=== PATIENT | male | born 1935 | race Caucasian/White ===

== ENCOUNTER 2018-12-18 08:12 | Observation (INO) ==
[2018-12-18] MEDS ORDERED: MIDAZOLAM HCL 1 MG/ML 2ML VIAL ONE (10:07)
[2018-12-18] MEDS ORDERED: fentaNYL citrate 100 MCG/2 ML VIAL ONE (10:07)
[2018-12-18] MEDS ORDERED: HEPARIN (PORCINE) 1000 UNIT/ML 10 ML (CATH LAB USE ONLY) ONE (10:08)
[2018-12-18] MEDS ORDERED: NiCARDipine HCL INJ 2.5 MG/ML 10 ML AMP ONE (10:08)
[2018-12-18] MEDS ORDERED: NITROGLYCERIN/D5W 100MCG/ML 20ML SYR ONE (10:10)
--- NOTE | 2018-12-18 10:12 | History & Physical Bridge Note ---
Date of Service December 18, 2018 History & Physical Bridge Note I have examined the patient, reviewed the History & Physical and in the interval since the performance of the History & Physical I have noted the following changes of clinical significance: no changes noted
--- NOTE | 2018-12-18 10:12 | Pre Anesthesia Assessment ---
Date of Service December 18, 2018 Pre Sedation Assessment Vital Signs Temp Pulse Resp Pulse Ox 12/18/18 08:38 36.6 C 74 16 98 Pre-Sedation Airway Assessment Smoking Status: Never smoker Hx Sleep Apnea: No Hx Difficult Intubation: No Short, Thick Neck: No Thyromental Distance: > or= 3.5 Finger Breadths Oral Cavity: + WNL Mallampati Class: III ASA: ASA3 NPO Status Date of Last Intake of Fluids: 12/17/18 Time of Last Intake of Fluids: 19:00 Date of Last Intake of Solid Food: 12/17/18 Time of Last Intake of Solid Foods: 19:00 Notes The planned sedation has been discussed with the patient. Informed Consent was obtained. I have identified the patient, determined the appropriateness of sedation and have assessed the patient immediately prior to the procedure. All medicine(s) and interventions are by my order.
[2018-12-18] MEDS ORDERED: ACETAMINOPHEN 325 MG TAB PO PRN (11:32)
[2018-12-18] MEDS ORDERED: ONDANSETRON INJ 2 MG/ML 2 ML VIAL IV PRN (11:32)
--- NOTE | 2018-12-18 11:32 | Post Anesthesia Assessment ---
Date of Service December 18, 2018 Post Sedation Assessment Vital Signs Temp Pulse Resp Pulse Ox 12/18/18 08:38 36.6 C 74 16 98 Recovery Score Activity: Moves 4 extremities Respiration: Deep Breath/Cough Circulation: +/-20% PreAnes Value Consciousness: Fully Awake Oxygen Saturation: O2 needed for >90% Discharge Sedation Level of Care: Fast Track Phase II Post Sedation Plan On clinical assessment, the patient appears to have tolerated the sedation without complications. Patient is recovering as anticipated. Patient will continue to be monitored by nursing and may be discharged when sedation discharge criteria are met per below protocol. Upon Completions of procedure and additional 15 minutes continue every 5 minute vital signs and the P.A.R. score; then discharge to a Phase I or Fast Track to Phase II per the following guidelines: * Discharge Patient to appropriate Phase II area if PAR is 8 or greater or return to pre- procedure baseline. The post - procedure orders will be as directed. * If PAR score is less than 8 or not return to pre-procedure baseline then patient will follow Phase I monitoring till PAR is reached for Phase II. The Phase I may be done in procedure room or may call to secure a Phase I area. * If naloxone or flumazenil are used for reversal, hold in Phase I for continued monitoring from when last reversal dose was given for a minimum of 60 minutes or longer pending the nurse and/or physician discretion of patient condition before discharge to Phase II. Please call the Sedation Physician to re-evaluate and complete post-note for discharge to Phase II area. Do NOT discharge from procedure sedation or Phase 1 until post- sedation evaluation note is complete by procedure /sedation MD Sedation Discharge Instructions to be given to the patient at discharge to home.
[2018-12-18] MEDS ORDERED: OXYCODONE HCL IR 5 MG TAB (IMMEDIATE RELEASE) PO PRN (11:34)
--- NOTE | 2018-12-18 11:59 | Cardiac Catheterization ---
Cardiac Cath Procedure Full Procedure Date December 18, 2018 Pre-Procedure Diagnosis Pre-Procedure Diagnosis: CAD AUC Score AUC Score: 7 Post-Procedure Diagnosis Post-Procedure Diagnosis: Severe CAD and Successful PCI Procedure(s) Performed Procedure(s) Performed: PTCA and Femoral Artery Angiography Hub Inventory Specialist Quincy Coburn MD Solar Electric Practitioner(s) Manjit Estimated Blood Loss Estimated Blood Loss: 10 Medication(s) Medication(s): Fentanyl, Heparin, Lidocaine 1% and Versed Summary of Findings Indication: Staged PCI of mid RCA Access: 6 Fr right common femoral artery Catheters: AL1 Findings: For full details of patient's coronary angiography please cath report dictated by 12/02/2018. Briefly, patient found to have multi vessel disease including a subtotally occluded LAD and 90% sequential stenosis involving the mid RCA. Post PCI to LAD at time of STEMI/cardiac arrest. Decision to proceed with staged PCI of RCA today. -- PCI -- Antithrombotic therapy: Heparin, ticagrelor Procedure: RCA cannulated with AL-1 guide and guideliner Gas Inspector 50 wire passed across lesion into distal vessel Earlymid and latemid lesions predilated with 1.5, 2.0, 2.5 compliant balloons Earlymid lesion resistant to high pressure compliant balloon inflations Attempt made to dilate early-mid lesion with angiosculpt 2.5 balloon but stenosis persisted Further attempt made to dilate with 2.5 NC balloon but again unable to expand lesion. At this point latemid RCA lesion well-expanded with minimal residual stenosis. 70% residual stenosis in earlymid stenosis but no evidence of dissection or other coronary complications. Due to inability to fully expand earlymid RCA lesion decision made to forego stenting. Post procedure ALBERT III flow and chest pain-free. Arterial Closure: Angio-Seal Summary: 1. Sequential severe mid RCA lesions 2. PCI of late-mid RCA lesion with 2.5 balloon with minimal residual stenosis. 3. PCI of early-mid RCA lesion with 2.5 compliant/NC balloons, and 2.5 angiosculpt balloon with residual 70% stenosis. Recommendations: To PCU for continued monitoring Continue Ticagrelor Continue dual-antiplatelet therapy for at least 1 year Continue statin, and ASCVD risk factor modification Cardiac rehab. No plans for further intervention to RCA unless refractory angina. If RCA lesion were to require intervention in the future would recommend referral to tertiary center for atherectomy. Hemodynamics Rest Ao:: 108/50/72 Final Ao: 104/55/77 LV: -- Recommendations Recommendations: PCI without planned CABG Specimens Specimens: None Radiation Exposure (mGy) 2079 Contrast (mls) 90 Fluids (cc crystalloids) Fluids (cc crystalloids): 200 Drains Drains: none Anesthesia moderate Procedural Complication(s) None Disposition PCU ACC Data: Retail Special Event Associate Cardiac Status Clinical evaluation leading to the procedure CAD Presenation: Stable angina Anginal Classification: CCS III Heart Failure: No Cardiogenic Shock within 24 Hours: No Cardiac Arrest within 24 Hours: No Imaging Studies Past 6 Months: Yes Stress Studies Past 6 Months: No Diagnostic Physicians Name: Quincy Coburn MD Status: Elective Closure Device Percutaneous Entry Location: Radial Closure Device: Angio-Seal Recommendations: PCI without planned CABG PCI Indication: Staged PCI Lesion Segment Name: mid RCA Culprit Artery: No Stenosis Prior to Rx (%): 90 Chronic Total Occlusion: No IVUS: No FFR: No Pre-Procedure ALBERT Flow: 3 Previously Treated Lesion: No Lesion Complexity: High/C Lesion Length (mm): 25 Thrombus Present: No Bifurcation Lesion: No Guidewire Across Lesion: Stenosis Post-Procedure (%): 70 Post-Procedure ALBERT Flow: 3 Devices(s) Deployed: No Yes Intraprocedure Events Significant Disection: No Perforation: No
[2018-12-18] MEDS: SODIUM CHLORIDE 0.9% 1000ML 1,000 ML IV SCH (12:18)
[2018-12-18] MEDS: FLUTICASONE/SALMETEROL 250/50 (ADVAIR) 14 PUFF/1 INHALER INH SCH (20:35)
[2018-12-18] MEDS: TICAGRELOR 90 MG TAB PO SCH (20:35)
[2018-12-18] MEDS ORDERED: ATORVASTATIN 40 MG TAB PO SCH (21:00)
[2018-12-19] MEDS: SODIUM CHLORIDE 0.9% 1000ML 1,000 ML IV SCH (00:02)
[2018-12-19 07:20] LABS: Basophils # (auto) 0.01 K/uL (0-0.2); Basophils % (auto) 0.1 %; Eosinophils # (auto) 0.09 K/uL (0-0.5); Eosinophils % (auto) 1.2 %; Hematocrit (blood only) 37.3 % (42-52); Immature Granulocytes # (auto) 0.02 K/uL (0.00-0.02); Immature Granulocytes % (auto) 0.3 %; Lymphocytes # (auto) 0.64 K/uL (1.2-3.4); Lymphocytes % (auto) 8.6 %; Mean Corpuscular Hgb Conc 34.9 g/dL (32-36); Mean Corpuscular Volume 90.3 fL (80-100); Mean Platelet Volume 10.2 fL (7.4-10.4); Monocytes # (auto) 0.54 K/uL (0.11-0.59); Monocytes % (auto) 7.3 %; Neutrophils % (auto) 82.5 %; Platelet Count 271 K/uL (130-400); RDW Standard Deviation 46.2 fL (36.4-46.3); Red Blood Count 4.13 M/uL (4.7-6.1)
[2018-12-19] MEDS: FLUTICASONE/SALMETEROL 250/50 (ADVAIR) 14 PUFF/1 INHALER INH SCH (07:38)
[2018-12-19] MEDS: TICAGRELOR 90 MG TAB PO SCH (07:39)
[2018-12-19 07:57] LABS: Calcium 8.4 mg/dl (8.5-10.1); Creatinine Clr Calc Pharmacy 58.2 ml/min; Est GFR (African American) 79.9; Est GFR (Non-African American) 68.9; Potassium 4.2 mmol/L (3.5-5.1)
[2018-12-19] MEDS ORDERED: ASPIRIN 81 MG ECTAB PO SCH (09:00)
[2018-12-19] MEDS ORDERED: LISINOPRIL 10 MG TAB PO SCH (09:00)
[2018-12-19] MEDS ORDERED: METOPROLOL SUCC 50MG EXT REL TAB PO SCH (09:00)
--- NOTE | 2018-12-21 16:54 | Discharge Summary ---
Date of Service December 21, 2018 Admission HPI Per Admitting Provider Mr. Varner is an 83 year old male with recent acute anterior STEMI, VT/VF arrest, ischemic cardiomyopathy, multivessel CAD, dyslipidemia, hypertension, asthma and history of renal cancer. He returns today for planned PCI of RCA. Specialty Data Cardiology PCI of RCA: Summary: 1. Sequential severe mid RCA lesions 2. PCI of late-mid RCA lesion with 2.5 balloon with minimal residual stenosis. 3. PCI of early-mid RCA lesion with 2.5 compliant/NC balloons, and 2.5 angiosculpt balloon with residual 70% stenosis. Discharge Data Procedures Performed Operation Date: 12/18/18 09:30 Actual Procedures p POBA SGL Vessel - Amilcar Coburn MD s Cineradiography w/Routine Exam - Amilcar Coburn MD s Cath, Coronaries ONLY (no LV) - Amilcar Coburn MD Hospital Course (1) CAD (coronary artery disease): Patient return for staged PCI of RCA. Was previously admitted in November 2018 in the setting of anterior STEMI complicated by VT/VF cardiac arrest and severe LV dysfunction. Had previously underwent PCI of mid LAD with single drug-eluting stent at time of STEMI. During admission attempt made at PCI of mid RCA but was unable to pass equipment across mid RCA stenosis. Returned to approach via femoral artery. With current procedure was able to pass multiple balloons across mid RCA stenosis. Latemid RCA stenosis responded appropriately to compliant balloon inflation with minimal residual stenosis. Earlymid RCA stenosis resistant to multiple compliant balloon inflations as well as 2.5 angiosculpt balloon. Post inflations approximately 60-70% residual stenosis. No apparent dissection or coronary complications and ALBERT-3 flow. Decision made to complete procedure without stenting. Patient was admitted for observation. Had no chest pain during observation. Telemetry unremarkable. No access site complications on day of discharge. Follow-up labs were stable. Patient discharged home on prior dual antiplatelet therapy with aspirin, Brilinta. No plans for repeat attempts at intervention to RCA unless refractory angina in the future. Follow-up with cardiology in 2 weeks. Discharge Instructions Home Medications fluticasone-salmeterol 1 puff INHALATION BID 12/02/18 [History Confirmed 12/18/18] Brilinta 90 mg PO BID #60 tab 12/06/18 [Rx Confirmed 12/18/18] aspirin [Ecotrin Low Strength] 81 mg PO QAM #30 tab 12/06/18 [Rx Confirmed 12/18/18] oxycodone 5 mg PO Q8H PRN #30 tab 12/06/18 [Rx Confirmed 12/18/18] atorvastatin 80 mg PO HS 12/18/18 [History Confirmed 12/18/18] lisinopril 10 mg PO DAILY 12/18/18 [History Confirmed 12/18/18] metoprolol succinate 100 mg PO DAILY 12/18/18 [History Confirmed 12/18/18] spironolactone 25 mg PO DAILY #30 tab 12/19/18 [Rx]
== END 2018-12-19 10:56 | disposition home or self-care (01) ==
LOC: 2S 08:12 → CC 08:12

== ENCOUNTER 2020-08-06 06:01 | Observation (INO) ==
[2020-08-06 06:38] LABS: Basophils # (auto) 0.01 K/uL (0-0.2); Basophils % (auto) 0.1 %; Eosinophils # (auto) 0.42 K/uL (0-0.5); Eosinophils % (auto) 5.6 %; Hematocrit (blood only) 43.1 % (42-52); Hemoglobin 14.8 g/dL (14.0-18.0); Immature Granulocytes # (auto) 0.02 K/uL (0.00-0.02); Immature Granulocytes % (auto) 0.3 %; Lymphocytes % (auto) 13.4 %; Mean Corpuscular Hemoglobin 32.2 pg (25-34); Mean Corpuscular Hgb Conc 34.3 g/dL (32-36); Mean Corpuscular Volume 93.7 fL (80-100); Mean Platelet Volume 10.7 fL (7.4-10.4); Monocytes # (auto) 0.65 K/uL (0.11-0.59); Monocytes % (auto) 8.7 %; Neutrophils # (auto) 5.35 K/uL (1.4-6.5); Neutrophils % (auto) 71.9 %; Platelet Count 177 K/uL (130-400); RDW Coefficient of Variation 14.2 % (11.5-14.5); RDW Standard Deviation 48.6 fL (36.4-46.3); White Blood Count 7.45 K/uL (4.8-10.8)
--- NOTE | 2020-08-06 06:41 | XRay Report ---
XR chest 1V portable CLINICAL HISTORY: Atypical chest pain. COMPARISON STUDY: Chest radiograph January 01, 2019. FINDINGS: Lung volumes are mildly increased. Lungs are clear. There is no pneumothorax or pleural eff usion. Cardiac size is normal. Mediastinal contours are normal. There is no evidence for pulmonary ed jostin. Incidental note is made of severe osteoarthritis of the right glenohumeral joint. IMPRESSION: No acute cardiopulmonary findings. ACT 112: Negative or not required by law. Electronically signed by: Birtton Harris M.D. 08/06/2020 6:40 AM
[2020-08-06 06:42] LABS: Partial Thromboplastin Time 27.6 Seconds (21.0-31.0); Prothrombin Time 10.6 Seconds (9.0-12.0)
[2020-08-06 06:51] LABS: Alanine Aminotransferase 32 U/L (12-78); Albumin Level 3.3 gm/dl (3.4-5.0); Aspartate Aminotransferase 25 U/L (15-37); BUN Creatinine Ratio 24.4 (10-20); Blood Urea Nitrogen 26 mg/dl (7-18); Calcium 8.6 mg/dl (8.5-10.1); Carbon Dioxide 26 mmol/L (21-32); Chloride 112 mmol/L (98-107); Creatinine Clr Calc Pharmacy 48.5 ml/min; Est GFR (African American) 72.7; Est GFR (Non-African American) 62.7; Glucose 99 mg/dl (70-99); Lipase 67 U/L (73-393); Potassium 4.3 mmol/L (3.5-5.1); Sodium 141 mmol/L (136-145)
[2020-08-06 06:56] LABS: Albumin Globulin Ratio 1.1 (0.9-2); Alkaline Phosphatase 105 U/L (45-117); Bilirubin,Total 0.7 mg/dl (0.2-1); Globulin 2.9 gm/dl (2.5-4.0); Total Protein 6.2 gm/dl (6.4-8.2); Troponin I < 0.015 ng/ml (0-0.045)
--- NOTE | 2020-08-06 07:32 | Emergency Department Note ---
History of Present Illness General Chief Complaint: Chest Pain Stated Complaint: CHEST PAIN Time Seen by Provider: 08/06/20 06:42 Source: patient Mode of arrival: ambulatory Limitations: no limitations History of Present Illness Provider Complaint: chest pain Maximum Pain Intensity: 0 This is an 85-year-old male who presents to the ED with a chief complaint of states that his symptoms chest pain. The patient are tingling under the left chest that come and go. The patient states that this morning it lasted longer while he was lying in bed and therefore he came to the ED for evaluation. He does have history of 1 stent in the past. The symptoms are not similar to the symptoms that he had when he needed a stent a year ago. He denies any associated symptoms such as shortness of breath, fevers or recent illness. He is currently not having the symptoms. Home Medications Home Medications Medication Instructions Recorded Confirmed Type fluticasone propion-salmeterol 1 puff INHALATION BID 12/02/18 08/06/20 History ticagrelor 90 mg tablet 90 mg PO BID #180 tab 11/29/19 08/06/20 Rx atorvastatin 80 mg tablet 80 mg PO HS #90 tab 01/28/20 08/06/20 Rx aspirin [Ecotrin Low Strength] 81 mg PO HS 08/06/20 08/06/20 History lisinopril 10 mg PO QAM 08/06/20 08/06/20 History metoprolol succinate 100 mg PO QAM 08/06/20 08/06/20 History nitroglycerin 0.4 mg SUBLINGUAL UD PRN 08/06/20 08/06/20 History Allergies Allergy/AdvReac Type Severity Reaction Status Date / Time amoxicillin Allergy Unknown Verified 08/06/20 06:20 ciprofloxacin Allergy Unknown Verified 08/06/20 06:20 Past Med/Surg History Family History Other No pertinent family history Social History Smoking Status: Never smoker Second Hand Exposure: No; Hx Alcohol Use: No Hx Substance Use: No Preferred Language: Estonian Communication Ability: Effective Senior Underwriter Required: No Beliefs That Will Affect Care: None marital status: Current Living Situation: Spouse current occupational status: retired Feels Safe at Home: Yes Assistive Devices: None Review of Systems A total of 10 systems reviewed and were otherwise negative Physical Exam Vital Signs Vital Signs - 24 hr 08/06/20 06:16 08/06/20 06:21 08/06/20 06:31 Temperature 36.8 C Temperature Source Oral Pulse Rate 64 62 Pulse Rate from SpO2 Sensor 68 Respiratory Rate 18 13 Respiratory Effort / Characteristics Non-Labored Respiratory Depth Normal Blood Pressure 179/108 H 154/88 H Blood Pressure Mean 131 97 Pulse Oximetry 97 97 Oxygen Delivery Method Room Air Room Air Room Air Sepsis Recent Fever Within 48 Hours No Sepsis New/Unexplained Change in Mental Status No Sepsis Action Taken by Nursing No Action Required CONSTITUTIONAL/VITAL SIGNS: Reviewed / noted above. GENERAL: Non-toxic in appearance. INTEGUMENTARY: Warm, dry, and [place]. HEAD: Normocephalic. EYES: without scleral icterus or trauma. ENT/OROPHARYNX: clear and moist. LYMPHADENOPATHY/NECK: Is supple without lymphadenopathy or meningismus. RESPIRATORY: Lungs clear and equal. CARDIOVASCULAR: Regular rate and rhythm. GI/ABDOMEN: Soft and nontender. No organomegaly or pulsatile mass. No rebound or guarding. Normal bowel sounds. EXTREMITIES: Warm and well perfused. BACK: No CVA tenderness. NEUROLOGICAL: Intact without focal deficits. PSYCHIATRIC: normal affect. MUSCULOSKELETAL: Normally developed with good muscle tone. TRIAGE NURSING DOCUMENTATION REVIEWED. Medical Decision Making Differential Diagnosis The differential that was considered includes acute myocardial infarction, acute coronary syndrome, myocarditis, pericarditis, pericardial effusions /tamponade, esophageal perforation, thoracic aortic dissection, pulmonary embolism, pneumonia, pneumothorax, pancreatitis, shingles, acute cholecystitis, perforated abdominal viscus. Medical Records Attestation: I reviewed the patient's medical records. Home Medications Current Medication List: was personally reviewed by pr Laboratory Data Attestation: I reviewed the patient's lab results. Result diagrams: 08/06/20 06:13 08/06/20 06:13 Labs: Lab Results 08/06/20 08/06/20 08/06/20 Range/Units 06:13 06:13 06:13 WBC 7.45 (4.8-10.8) K/uL RBC 4.60 L (4.7-6.1) M/uL Hgb 14.8 (14.0-18.0) g/dL Hct 43.1 (42-52) % MCV 93.7 (80-100) fL MCH 32.2 (25-34) pg MCHC 34.3 (32-36) g/dL RDW Std Deviation 48.6 H (36.4-46.3) fL RDW Coeff of [place] 14.2 (11.5-14.5) % Plt Count 177 (130-400) K/uL MPV 10.7 H (7.4-10.4) fL Immature Gran % (Auto) 0.3 % Neut % (Auto) 71.9 % Lymph % (Auto) 13.4 % [place] % (Auto) 8.7 % Eos % (Auto) 5.6 % Baso % (Auto) 0.1 % Neut # (Auto) 5.35 (1.4-6.5) K/uL Lymph # (Auto) 1.00 L (1.2-3.4) K/uL [place] # (Auto) 0.65 H (0.11-0.59) K/uL Eos # (Auto) 0.42 (0-0.5) K/uL Baso # (Auto) 0.01 (0-0.2) K/uL Immature Gran # (Auto) 0.02 (0.00-0.02) K/uL PT 10.6 (9.0-12.0) Seconds INR 1.0 (0.9-1.1) APTT 27.6 (21.0-31.0) Seconds PTT Ratio 1.0 Sodium 141 (136-145) mmol/L Potassium 4.3 (3.5-5.1) mmol/L Chloride 112 H (98-107) mmol/L Carbon Dioxide 26 (21-32) mmol/L Anion Gap 3.0 (3-11) BUN 26 H (7-18) mg/dl Creatinine 1.08 (0.6-1.4) mg/dl Est Cr Clr Drug Dosing 48.5 ml/min Est GFR ( Amer) 72.7 Est GFR (Non-Af Amer) 62.7 BUN/Creatinine Ratio 24.4 H (10-20) Glucose 99 (70-99) mg/dl Calcium 8.6 (8.5-10.1) mg/dl Total Bilirubin 0.7 (0.2-1) mg/dl AST 25 (15-37) U/L ALT 32 (12-78) U/L Alkaline Phosphatase 105 (45-117) U/L Troponin I < 0.015 (0-0.045) ng/ml Total Protein 6.2 L (6.4-8.2) gm/dl Albumin 3.3 L (3.4-5.0) gm/dl Globulin 2.9 (2.5-4.0) gm/dl Albumin/Globulin Ratio 1.1 (0.9-2) Lipase 67 L (73-393) U/L Imaging Data Chest x-ray: Attestation: I personally reviewed and interpreted this imaging study as follows: Radiologist's impression: XR chest 1V portable CLINICAL HISTORY: Atypical chest pain. COMPARISON STUDY: Chest radiograph January 01, 2019. FINDINGS: Lung volumes are mildly increased. Lungs are clear. There is no pneumothorax or pleural effusion. Cardiac size is normal. Mediastinal contours are normal. There is no evidence for pulmonary edema. Incidental note is made of severe osteoarthritis of the right glenohumeral joint. IMPRESSION: No acute cardiopulmonary findings. ECG Data Attestation: I personally reviewed and interpreted this ECG as follows: Indication: chest pain Rate (beats per minute): 72 Rhythm: sinus with SA Findings: no PVC and no ST elevation MDM Narrative This is an 85-year-old male who presents with an atypical chest pain which is a tingling sensation in his left lower chest. His symptoms are random. Details listed above. The patient's twelve-lead EKG shows a sinus rhythm at a rate of 72 with a first degree AV block.Chest x-ray did not show any acute abnormalities. CBC and complete metabolic panel was unremarkable. Troponin is negative. Lipase is normal. The patient was told the results of the test. He is asymptomatic at this time. He is felt to be stable for discharge and outpatient follow-up. Impression & Plan Atypical chest pain Discharge Plan Visit Data Chief Complaint: Chest Pain Stated Complaint: CHEST PAIN ED Provider: Bill Benton Discharge Problem: Atypical chest pain Patient Disposition: Home - Self-Care Condition: Good Discharge Instructions Activity Restrictions/Additional Instructions: Your test results today did not show any concerning abnormalities. Follow-up with your doctor for further care and evaluation in 1-2 days if s ymptoms persist. Return to the emergency department for worsening or new symptoms or any concerns. You have been examined and treated today on an emergency basis only. This is not a substitute for, or an effort to provide, complete comprehensive medical care. It is impossible to recognize and treat all injuries or illnesses in a single emergency department visit. It is therefore important that you follow up closely with your doctor. Call as soon as possible for an appointment. Forms Stand Alone Forms: My [facility], Virtual Emergency Department, Important Visit Information Prescriptions Prescriptions: No Action Brilinta 90 mg tablet 90 mg PO BID Qty: 180 RF: 3 atorvastatin 80 mg tablet 80 mg PO HS Qty: 90 RF: 3 fluticasone propion-salmeterol 250-50 mcg/dose blister with device 1 puff Inhalation BID RF: 0 nitroglycerin 0.4 mg tablet, sublingual 0.4 mg sublingual UD PRN (Reason: Chest Pain) RF: 0 metoprolol succinate 100 mg tablet extended release 24 hr 100 mg PO QAM RF: 0 aspirin [Ecotrin Low Strength] 81 mg tablet,delayed release (DR/EC) 81 mg PO HS RF: 0 lisinopril 10 mg tablet 10 mg PO QAM RF: 0 Referrals Referrals: PCP,NO [Primary Care Provider] -
--- NOTE | 2020-08-06 09:01 | History & Physical Report ---
Date of Service August 06, 2020 Assessment & Plan (1) Atypical chest pain: (2) Wide-complex tachycardia: This is an 85-year-old male who has significant past medical history of CAD with history of anterior STEMI 11/2018 with subsequent VT/VF arrest, ischemic cardiomyopathy, HTN, HLD, COPD, history of renal cell carcinoma, oncocytoma who presents to ED secondary to chest pain x1 day. hx of STEMI with VT/VF arrest-- status post PCI of mid LAD with single AMELIE, Multivessel CAD-- staged POBA to heavily calcified RCA 12/2018 with residual 70% stenosis In ED pt remained chest pain free; however he did have asymptomatic run of wide- complex tachycardia at 200 bpm for 21 beats. Admit to PCU Consult cardiology Dr. Coburn, discussed with him Monitor on telemetry for any further arrhythmia Cycle troponins - next @ 1130 Potassium 4.3, check mag and TSH Obtain echocardiogram -last EF 45-50% per Dr. Coburn (3) CAD (coronary artery disease): hx of STEMI with VT/VF arrest-- status post PCI of mid LAD with single AMELIE, Multivessel CAD-- post POBA to heavily calcified RCA 12/2018 with residual 70% stenosis on ASA, Statin, Metoprolol and DAPT with asa and brilinta, pt has been compliant work up as above (4) HTN (hypertension): Blood pressure mildly elevated in ED He has not taken his morning medication continue metoprolol and lisinopril with dose now (5) HLD (hyperlipidemia): Continue statin (6) COPD (chronic obstructive pulmonary disease): No acute exacerbation, continue Advair (7) Oncocytoma: Follows Dr. 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 Insignificant change in one year. Left renal mass- slight enlargement this year. Currently being monitored by serial CT. (8) DVT prophylaxis: SQ Heparin Disposition: admit to PCU Follow up: PCP Dr. Carlisle upon discharge Pt was seen and examined in collaboration with Dr. Hudson, please see addendum History of Present Illness Chief Complaint: Chest pain x1 day. Primary Care Provider: Silvina Carlisle MD This is an 85-year-old male who has significant past medical history of CAD with history of anterior STEMI 11/2018 with subsequent VT/VF arrest, ischemic cardiomyopathy, HTN, HLD, COPD, history of renal cell carcinoma, oncocytoma who presents to ED secondary to chest pain x1 day. is at bedside. Of significance patient presented with acute NH 11/2018 with VT/VF arrest status post PCI of mid LAD with single AMELIE. He does have multivessel CAD post POBA to heavily calcified RCA 12/2018 with residual 70% stenosis. Diagnosed with ischemic cardiomyopathy, EF improved to 45 to 50%. He completed course of cardiac rehab and is treated with dual antiplatelet therapy. He is followed by Dr. Coburn. Yesterday patient noticed a dull ache that started on the left side of his chest. The pain would come and go lasting minutes up to 30 minutes. It could occur at rest or with exertion and there did not seem to be a pattern. It was not made worse with position change or taking a deep breath. He went to sleep last evening without any chest discomfort and when he woke up this morning and was using the bathroom the chest pain return. It lasted longer than prior episodes approximately 1 hour. called EMS. Patient received 4 baby aspirin, but did not take any nitro. Pain has since been resolved. Pain was nonradiating. He denies any recent heavy lifting or trauma. Symptoms were not associated with diaphoresis, nausea, palpitations or shortness of breath. He states he is fairly active although was more sedentary this summer. After completing course of cardiac rehab he did use his stationary bike, but has not used it since the summer. He does tend to yard work and denies any exertional chest pain or shortness of breath. He denies any history of GERD. He denies recent illness, fever, chills, sweats, lightheadedness, dizziness, nausea, vomit, abdominal pain, changes bowel or urinary habits. He does have frequent nocturia secondary to BPH. In ED patient remained hemodynamically stable. His initial troponin was negative and EKG revealed sinus rhythm with marked sinus arrhythmia at 72 bpm. Left anterior fascicular block. QTc 453. On telemetry in ED patient did have a episode of wide-complex tachycardia for 21 beats. Patient was asymptomatic at this time and resting in bed. His CBC and CMP were generally unremarkable. Chest x-ray negative for acute cardiopulmonary findings. Allergies Allergy/AdvReac Type Severity Reaction Status Date / Time amoxicillin Allergy Unknown Verified 08/06/20 06:20 ciprofloxacin Allergy Unknown Verified 08/06/20 06:20 Home Medications Home Medications Medication Instructions Recorded Confirmed Type fluticasone propion-salmeterol 1 puff INHALATION BID 12/02/18 08/06/20 History ticagrelor 90 mg tablet 90 mg PO BID #180 tab 11/29/19 08/06/20 Rx atorvastatin 80 mg tablet 80 mg PO HS #90 tab 01/28/20 08/06/20 Rx aspirin [Ecotrin Low Strength] 81 mg PO HS 08/06/20 08/06/20 History lisinopril 10 mg PO QAM 08/06/20 08/06/20 History metoprolol succinate 100 mg PO QAM 08/06/20 08/06/20 History nitroglycerin 0.4 mg SUBLINGUAL UD PRN 08/06/20 08/06/20 History Past Med/Surg History Medical History CAD (coronary artery disease) COPD (chronic obstructive pulmonary disease) HLD (hyperlipidemia) HTN (hypertension) Ischemic cardiomyopathy Oncocytoma Renal cell carcinoma Surgical History History of partial nephrectomy Left 2/2 to renal cell ca History of prostate biopsy S/P drug eluting coronary stent placement Per Dr. Coburn note 11/06/19: "-Acute NH with VT/VF arrest-- status post PCI of mid LAD with single AMELIE 2. Multivessel CAD-- post POBA to heavily calcified RCA 12/2018 with residual 70% stenosis" S/P PTCA (percutaneous transluminal coronary angioplasty) Family History Father Carotid artery disease Mother , 92 No problems noted. Denies family history of Coronary heart disease Social History Smoking Status: Never smoker Second Hand Exposure: No; Hx Alcohol Use: Yes Alcohol type: beer and wine Hx Substance Use: No Preferred Language: Mongolian Communication Ability: Effective Natural Resources Technician Required: No Beliefs That Will Affect Care: None marital status: Current Living Situation: Spouse current occupational status: retired Feels Safe at Home: Yes Assistive Devices: None Review of Systems Review of Systems: All systems reviewed & are unremarkable except as noted in HPI & below Physical Exam Physical Exam: Constitutional: WD/WN, elderly, male, vitals as above, NAD, sitting up in bed, pleasant, conversing easily Head: Normocephalic, Atraumatic Eyes: PERRL, conjunctivae normal, anicteric sclerae ENMT: external ear and nose normal, oropharynx normal Neck: trachea midline, no thyromegaly normal visual inspection Respiratory: normal respiratory effort, lungs clear to auscultation, no wheeze, rales, rhonchi. Normal insp/exp effort, no accessory muscle use Cardiovascular: RRR with ectopy, no murmur, no edema Vessels: no JVD or carotid bruit Chest: normal inspection of chest, CP not reproducible to palpation for movement Abdomen: normal bowel sounds, soft, nontender, no hepatosplenomegaly Musculoskeletal: no cyanosis or clubbing, extremities motor strength 5/5 Skin: no rashes, warm and dry normal turgor Neurologic: PERRL, EOMI, accommodation nl, no face palsy, no dysarthria CN's II-XI intact bilaterally and moves all extremities Psychiatric: A+Ox3, euthymic affect Lymphatic: no cervical or axillary lymphadenopathy : deferred Results & Data Results & Data ([facility]) Vital Signs (Past 12 Hours) Vital Signs Temp Pulse Resp BP Pulse Ox 08/06/20 06:31 62 13 154/88 H 97 08/06/20 06:16 36.8 C 64 18 179/108 H 97 Laboratory Results 08/06/20 08/06/20 08/06/20 Range/Units 06:13 06:13 06:13 WBC 7.45 (4.8-10.8) K/uL RBC 4.60 L (4.7-6.1) M/uL Hgb 14.8 (14.0-18.0) g/dL Hct 43.1 (42-52) % MCV 93.7 (80-100) fL MCH 32.2 (25-34) pg MCHC 34.3 (32-36) g/dL RDW Std Deviation 48.6 H (36.4-46.3) fL RDW Coeff of [place] 14.2 (11.5-14.5) % Plt Count 177 (130-400) K/uL MPV 10.7 H (7.4-10.4) fL Immature Gran % (Auto) 0.3 % Neut % (Auto) 71.9 % Lymph % (Auto) 13.4 % Owsley % (Auto) 8.7 % Eos % (Auto) 5.6 % Baso % (Auto) 0.1 % Neut # (Auto) 5.35 (1.4-6.5) K/uL Lymph # (Auto) 1.00 L (1.2-3.4) K/uL Owsley # (Auto) 0.65 H (0.11-0.59) K/uL Eos # (Auto) 0.42 (0-0.5) K/uL Baso # (Auto) 0.01 (0-0.2) K/uL Immature Gran # (Auto) 0.02 (0.00-0.02) K/uL PT 10.6 (9.0-12.0) Seconds INR 1.0 (0.9-1.1) APTT 27.6 (21.0-31.0) Seconds PTT Ratio 1.0 Sodium 141 (136-145) mmol/L Potassium 4.3 (3.5-5.1) mmol/L Chloride 112 H (98-107) mmol/L Carbon Dioxide 26 (21-32) mmol/L Anion Gap 3.0 (3-11) BUN 26 H (7-18) mg/dl Creatinine 1.08 (0.6-1.4) mg/dl Est Cr Clr Drug Dosing 48.5 ml/min Est GFR ( Amer) 72.7 Est GFR (Non-Af Amer) 62.7 BUN/Creatinine Ratio 24.4 H (10-20) Glucose 99 (70-99) mg/dl Calcium 8.6 (8.5-10.1) mg/dl Total Bilirubin 0.7 (0.2-1) mg/dl AST 25 (15-37) U/L ALT 32 (12-78) U/L Alkaline Phosphatase 105 (45-117) U/L Troponin I < 0.015 (0-0.045) ng/ml Total Protein 6.2 L (6.4-8.2) gm/dl Albumin 3.3 L (3.4-5.0) gm/dl Globulin 2.9 (2.5-4.0) gm/dl Albumin/Globulin Ratio 1.1 (0.9-2) Lipase 67 L (73-393) U/L Diagnostic Findings CXR: no acute findings ECG Rate (beats per minute): 72 Rhythm: sinus with SA Findings: + LAFB Code Status & VTE Plan Code Status Full Code VTE Prophylaxis Plan VTE Prophylaxis will be ordered: Yes Supervising Physician Co-Signing Physician Notes HISTORY: Record reviewed. Patient interviewed and examined in ED around 0930. Care coordinated with Annita Pradhan PA-C. Please refer to her documentation for complete history. Briefly, 85 YO M with history of CAD, s/p PCI. Experiencing intermittent nonexertional chest pain. Has not tried SL NTG. EXAM: General- no distress Lungs- clear to auscultation; no respiratory distress Cardiovascular- RRR; no murmur; no gallop; no JVD; no pretibial edema Abdomen- + bowel sounds, soft, nontender Extremities- no cyanosis; no calf tenderness Neuro- alert, oriented Skin- warm & dry DATA: Troponin < 0.015. Other lab studies as noted. Portable chest x-ray reviewed by the undersigned and formally interpreted by Radiology: FINDINGS: Lung volumes are mildly increased. Lungs are clear. There is no pneumothorax or pleural effusion. Cardiac size is normal. Mediastinal contours are normal. There is no evidence for pulmonary edema. Incidental note is made of severe osteoarthritis of the right glenohumeral joint. IMPRESSION: No acute cardiopulmonary findings. Electronically signed by: Britton Harris M.D. 08/06/2020 6:40 AM EKG performed at 0607 reviewed and demonstrated sinus arrhythmia at 72 / minute, no acute ST or T-wave changes. ASSESSMENT AND PLAN: Intermittent chest pain, nonexertional. Known CAD, s/p PCI. First troponin normal. No acute EKG changes. Cardiology consulted. Continue aspirin, ticagrelor, metoprolol, statin. 20 beat run of wide-complex tachycardia in ED. Asymptomatic. PAF with aberrancy vs ventricular tachycardia. K 4.3. Mg 2.3. Continue metoprolol. Discuss with Cardiology. Please refer to LEROY Pradhan's documentation for discussion of other issues.
[2020-08-06] MEDS ORDERED: METOPROLOL SUCC 50MG EXT REL TAB PO SCH (09:34)
[2020-08-06 09:52] LABS: Magnesium 2.3 mg/dl (1.8-2.4); Thyroid Stimulating Hormone 1.05 uIu/ml (0.300-4.500)
--- NOTE | 2020-08-06 10:35 | XCELERA ---
[id number]
[2020-08-06] MEDS ORDERED: ONDANSETRON INJ 2 MG/ML 2 ML VIAL IV PRN (10:48)
[2020-08-06] MEDS ORDERED: ACETAMINOPHEN 325 MG TAB PO PRN (10:48)
[2020-08-06] MEDS ORDERED: ALUMINUM/MAGNESIUM SUSP 30 ML UDC PO PRN (10:48)
[2020-08-06] MEDS ORDERED: MAGNESIUM HYDROXIDE SUSP 30 ML UDC PO PRN (10:48)
[2020-08-06] MEDS ORDERED: POLYETHYLENE (MIRALAX) 17 GM PACK PO PRN (10:48)
[2020-08-06] MEDS ORDERED: NITROGLYCERIN SL 0.4 MG/TAB TAB SL PRN (10:48)
--- NOTE | 2020-08-06 11:44 | Cardiology Consultation ---
Date of Consultation August 06, 2020 Assessment & Plan (1) Atypical chest pain: 2. Non-sustained VT 3. Multivessel CAD-- Anterior HI with SCD 11/2018, post POBA to heavily calcified RCA 12/2018 with residual 70% stenosis 4. Preserved LV function 4. Dyslipidemia 5. Hypertension 6. COPD 7. History of renal cancer Reviewed patients initial cardiac testing. WCT most consistent with slow NSVT. Atypical chest pain without evidence of ischemia by ECG/enzymes or echo. Despite atypical nature of symptoms, with prior history of CAD and observed NSVT suspicion for ACS still elevated and recommend additional risk stratification. -- Continue to monitor on telemetry overnight -- Serial troponin. -- If trops remain negative plan for exercise/lexiscan SPECT tomorrow -- increase toprol XL to 100mg BID -- supplement K to >4, Mag > 2 -- continue DAPT with ASA, ticagrelor. -- continue lisinopril, statin. Will follow. History of Present Illness Attending Physician: Ming Hudson MD History of Present Illness Mr. Varner is an 85 year old male with a history of multivessel CAD diagnosed in the setting of anterior STEMI and subsequent VT/VF arrest, resolved ischemic cardiomyopathy, dyslipidemia, hypertension, asthma and history of renal cancer who returned to [facility] today with atypical chest discomfort. Pain intermittent for last 24 hours. Described LT sided pain "like a tooth ache" lasting seconds to minutes. Pain different than symptoms preceding HI. No recent change in exercise tolerance. No association with exertion. Denies palpitations, presyncope. In ED chest pain free, ECG sinus rhythm with atrial ectopy, no ST changes. Initial troponin negative. While on telemetry in ED noted to have a single episode of asymptomatic WCT (~19 beats, ~150-160 bpm). Repeat echo this morning showed normal LV function without wall motion abnormalities. Prior cardiac history: Admitted to [facility] on 12/02/2018 after developed severe central chest discomfort. EKG in route showed anterior ST elevations and heart alert was activated from the field. Upon arrival he arrested while being transferred from the ambulance to the ED. He achieved ROSC after multiple defibrillations and CPR for 4-5 minutes. He underwent emergent cardiac catheterization which demonstrated acute thrombotic subtotal occlusion of mid LAD just prior to bifurcation, 90% ostial left PLB, 50-60% disease of distal circumflex and diffuse mid RCA stenosis up to 80%. He underwent successful PCI of mid LAD with single AMELIE and POBA of ostium of 2nd diagonal. Troponin peaked at 19. His echo demonstrated severe LV dysfunction and therefore staged PCI of mid RCA was attempted but unsuccessful. He had transient atrial fibrillation during his hospitalization but was not felt to need anticoagulation. He also had acute renal insufficiency which improved at discharge. Discharged home on hospital day 5. He returned for planned staged PCI of RCA on 12/18/2018. Procedure performed via femoral artery approach. Had successful POBA of a late mid RCA lesion but unable to fully expand a heavily calcified early-mid RCA lesion despite multiple attempts with NC, angiosculpt balloons, residual 70% stenosis. Recent cardiovascular studies: Echo 01/2019: Mild LVH, EF 45 to 50%, mild apical, distal anterior wall hypokinesis Allergies Allergy/AdvReac Type Severity Reaction Status Date / Time amoxicillin Allergy Unknown Verified 08/06/20 06:20 ciprofloxacin Allergy Unknown Verified 08/06/20 06:20 Home Medications Home Medications Medication Instructions Recorded Confirmed Type fluticasone propion-salmeterol 1 puff INHALATION BID 12/02/18 08/06/20 History ticagrelor 90 mg tablet 90 mg PO BID #180 tab 11/29/19 08/06/20 Rx atorvastatin 80 mg tablet 80 mg PO HS #90 tab 01/28/20 08/06/20 Rx aspirin [Ecotrin Low Strength] 81 mg PO HS 08/06/20 08/06/20 History lisinopril 10 mg PO QAM 08/06/20 08/06/20 History metoprolol succinate 100 mg PO QAM 08/06/20 08/06/20 History nitroglycerin 0.4 mg SUBLINGUAL UD PRN 08/06/20 08/06/20 History Patient History Medical History CAD (coronary artery disease) COPD (chronic obstructive pulmonary disease) HLD (hyperlipidemia) HTN (hypertension) Ischemic cardiomyopathy Oncocytoma Renal cell carcinoma Surgical History History of partial nephrectomy Left 2/2 to renal cell ca History of prostate biopsy S/P drug eluting coronary stent placement Per Dr. Coburn note 11/06/19: "-Acute HI with VT/VF arrest-- status post PCI of mid LAD with single AMELIE 2. Multivessel CAD-- post POBA to heavily calcified RCA 12/2018 with residual 70% stenosis" S/P PTCA (percutaneous transluminal coronary angioplasty) Family History Father Carotid artery disease Mother , 92 No problems noted. Denies family history of Coronary heart disease Social History Smoking Status: Never smoker Second Hand Exposure: No; Hx Alcohol Use: Yes Alcohol type: beer and wine Hx Substance Use: No Preferred Language: Albanian Communication Ability: Effective Snorkelling Instructor Required: No Beliefs That Will Affect Care: None marital status: Current Living Situation: Spouse current occupational status: retired Feels Safe at Home: Yes Assistive Devices: None Review of Systems Review of Systems: All systems reviewed & are unremarkable except as noted in HPI & below Physical Exam Physical Exam: General: Comfortable, no acute distress Eyes: Sclerae anicteric, extraocular movements intact HENT: Oropharynx clear mucous membranes moist Neck: Normal carotid upstrokes, no bruits. No JVD. Lungs: Clear to auscultation bilaterally Cardiac: Regular rate and rhythm, no murmurs Abdomen: Soft, nontender, nondistended, positive bowel sounds. Neuro: Nonfocal Psych: Alert orient x3, normal affect and mood Extremities/Vascular: -- 2+ radial bilaterally -- No edema Results & Data ([facility]) Vital Signs (Past 12 Hours) Vital Signs Temp Pulse Pulse Resp BP BP Pulse Ox 08/06/20 11:08 157/79 H 08/06/20 10:00 57 L 9 L 145/71 H 95 08/06/20 09:34 98.1 F 56 L 18 174/74 H 97 08/06/20 09:30 59 L 9 L 142/64 H 96 08/06/20 09:00 62 19 153/87 H 98 08/06/20 08:30 56 L 7 L 154/85 H 98 08/06/20 08:23 54 L 9 L 174/78 H 96 08/06/20 08:00 56 L 6 L 174/78 H 98 08/06/20 07:31 59 L 7 L 188/89 H 96 08/06/20 07:30 67 18 96 08/06/20 07:00 57 L 10 L 166/79 H 98 08/06/20 06:32 64 20 97 08/06/20 06:31 62 13 154/88 H 97 08/06/20 06:16 98.2 F 64 18 179/108 H 97 PG Care Time/CCT Total # of Minutes Spent Total Time Spent with Patient: Total time spent is greater than 50% in coordination of care (as documented) at patient's floor/unit and/or counseling patient: Coding Level of Care Code 63156 Inpt Consult Level 4 Diagnoses Atypical chest pain R07.89
[2020-08-06] MEDS: FLUTICASONE/VILANTEROL 100/25MCG 14 PUFFS/INHALER INH SCH (12:10)
[2020-08-06] MEDS: lisinopril 10 MG TAB PO SCH (12:11)
[2020-08-06] MEDS: TICAGRELOR 90 MG TAB PO SCH ×2 (12:11→20:21)
[2020-08-06] MEDS: HEPARIN SOD 5,000 UNIT/0.5 ML VIAL SQ SCH ×2 (13:24→20:22)
[2020-08-06] MEDS: ATORVASTATIN 40 MG TAB PO SCH (20:21)
[2020-08-06] MEDS: METOPROLOL SUCC 50MG EXT REL TAB PO SCH (23:59)
[2020-08-07] MEDS: HEPARIN SOD 5,000 UNIT/0.5 ML VIAL SQ SCH ×3 (05:06→21:57)
--- NOTE | 2020-08-07 06:00 | Electrocardiogram Report ---
Test Reason : Blood Pressure : / mmHG Vent. Rate : 072 BPM Atrial Rate : 072 BPM P-R Int : 208 ms QRS Dur : 090 ms QT Int : 414 ms P-R-T Axes : 042 -54 034 degrees QTc Int : 453 ms Sinus rhythm with 1st degree A-V block Premature atrial complexes Left anterior fascicular block Septal infarct , age undetermined Abnormal ECG When compared with ECG of 18-DEC-2018 11:52, T wave inversion no longer evident in Anterior leads T wave inversion no longer evident in Inferior leads QT has shortened Confirmed by Steven Cueva ([id number]) on 08/07/2020 6:00:16 AM Referred By: REFERRED SELF Confirmed By:Steven Cueva
[2020-08-07 06:19] LABS: Hematocrit (blood only) 39.5 % (42-52); Hemoglobin 13.2 g/dL (14.0-18.0); Mean Corpuscular Hemoglobin 31.3 pg (25-34); Mean Corpuscular Hgb Conc 33.4 g/dL (32-36); Mean Corpuscular Volume 93.6 fL (80-100); Mean Platelet Volume 10.9 fL (7.4-10.4); Platelet Count 169 K/uL (130-400); RDW Coefficient of Variation 14.3 % (11.5-14.5); Red Blood Count 4.22 M/uL (4.7-6.1); White Blood Count 5.66 K/uL (4.8-10.8)
[2020-08-07 06:52] LABS: BUN Creatinine Ratio 26.4 (10-20); Calcium 8.4 mg/dl (8.5-10.1); Creatinine Clr Calc Pharmacy 49.9 ml/min; Est GFR (African American) 77.9; Est GFR (Non-African American) 67.2; Potassium 4.1 mmol/L (3.5-5.1)
[2020-08-07] MEDS ORDERED: REGADENOSON 0.4 MG/5 ML SYR IV ONE (08:54)
[2020-08-07] MEDS: FLUTICASONE/VILANTEROL 100/25MCG 14 PUFFS/INHALER INH SCH (10:53)
[2020-08-07] MEDS: TICAGRELOR 90 MG TAB PO SCH ×2 (10:54→19:51)
[2020-08-07] MEDS: lisinopril 10 MG TAB PO SCH (10:54)
[2020-08-07] MEDS: METOPROLOL SUCC 50MG EXT REL TAB PO SCH ×2 (10:54→19:50)
[2020-08-07] MEDS: ATORVASTATIN 40 MG TAB PO SCH (19:50)
--- NOTE | 2020-08-07 20:06 | Cardiology Progress Note ---
Date of Service August 07, 2020 Assessment & Plan (1) Atypical chest pain: 2. Non-sustained VT 3. Multivessel CAD-- Anterior ND with SCD 11/2018, post POBA to heavily calcified RCA 12/2018 with residual 70% stenosis 4. Preserved LV function 4. Dyslipidemia 5. Hypertension 6. COPD 7. History of renal cancer No recurrent chest pain. Troponin negative. Reviewed patient's stress test. Reassuring test. No signs of ischemia. No exercise induced ventricular ectopy. No recurrent NSVT on telemetry. -- From a cardiac standpoint OK with discharge early tomorrow morning. -- continue increased toprol XL -- continue DAPT with ASA, ticagrelor. -- continue lisinopril, statin. -- Follow-up with me in 3-4 weeks. Admission and Anticipated Discharge Date Admission Date: August 06, 2020 Subjective Feeling well. No episodes of chest pain overnight. No chest pain with stress test. Telemetry reviewed -- no recurrent NSVT Review of Systems Review of Systems: All systems reviewed & are unremarkable except as noted in HPI & below Physical Exam Physical Exam: General: Comfortable, no acute distress Lungs: Clear to auscultation bilaterally Cardiac: Regular rate and rhythm, no murmurs Abdomen: Soft, nontender Neuro: Nonfocal Psych: Alert orient x3, normal affect and mood Extremities/Vascular: -- 2+ radial bilaterally -- No edema Results & Data ([facility]) Vital Signs (Past 12 Hours) Vital Signs Temp Pulse Pulse Pulse Pulse Resp BP 08/07/20 19:32 97.9 F 55 L 18 135/71 08/07/20 15:42 63 08/07/20 15:17 97.9 F 65 18 114/51 L 08/07/20 12:00 97.3 F L 57 L 18 127/70 08/07/20 10:48 97.9 F 65 18 134/76 08/07/20 08:08 97.9 F 59 L 18 153/86 H 08/07/20 08:00 57 L Pulse Ox 08/07/20 19:32 95 08/07/20 15:42 08/07/20 15:17 97 08/07/20 12:00 95 08/07/20 10:48 97 08/07/20 08:08 96 08/07/20 08:00 PG Care Time/CCT Total # of Minutes Spent Total Time Spent with Patient: Total time spent is greater than 50% in coordination of care (as documented) at patient's floor/unit and/or counseling patient: Coding Level of Care Code 50767 Subseq Hosp Care Lvl 3 Diagnoses Atypical chest pain R07.89
[2020-08-07] MEDS ORDERED: ASPIRIN 81 MG ECTAB PO SCH (21:00)
--- NOTE | 2020-08-07 21:45 | Hospitalist Progress Note ---
Date of Service August 07, 2020 Assessment & Plan (1) Atypical chest pain: Serial troponins negative. Nuclear treadmill stress test today. (2) CAD (coronary artery disease): Continue aspirin, tricagrelor, metoprolol, statin. (3) Wide-complex tachycardia: Wide complex tachycardia in ED day of admission. Probable nonsustained ventricular tachycardia. Lytes OK. LVEF OK by echo. Metoprolol dose increased. Continue cardiac monitoring. (4) HTN (hypertension): Continue metoprolol and lisinopril. (5) COPD (chronic obstructive pulmonary disease): Stable. (6) HLD (hyperlipidemia): LDL-c = 45. Continue atorvastatin. (7) DVT prophylaxis: SQ heparin. Ambulate. (8) Discharge planning issues: Anticipated discharge to home. Primary care follow-up with [facility] and [facility]. Cardiology follow-up with Dr. Coburn. Admission and Anticipated Discharge Date Admission Date: August 06, 2020 Subjective Recheck for chest pain and arrhythmia. Patient seen in their room around 1350. No further chest pain. Stress test performed earlier today- results pending. Telemetry data reviewed: sinus bradycardia no more runs of wide complex tachycardia. Review of Systems: Constitutional- no fever. Cardiac- as noted above. Pulmonary- no cough or SOB. GI- no nausea, vomiting, diarrhea, melena, hematochezia. - no urinary symptoms. Otherwise, as noted above. Physical Exam Constitutional: no acute distress Respiratory: no respiratory distress Auscultation: lungs clear to aus cultation bilaterally Cardiovascular: Rate/Rhythm: regular rate and regular rhythm Heart Sounds: no gallop, no murmur and no cardiac rub Vessels: no JVD Extremities: no calf tenderness and no edema Gastrointestinal (Abdomen): normal bowel sounds, soft, nontender, no hepatosplenomegaly Musculoskeletal: Extremities: no cyanosis Skin: no rashes, warm and dry Psychiatric: Orientation: alert and oriented x 3 Results & Data Results & Data ([facility]) Vital Signs (Past 12 Hours) Vital Signs Temp Pulse Pulse Pulse Pulse Resp BP 08/07/20 19:32 36.6 C 55 L 18 135/71 08/07/20 15:42 63 08/07/20 15:17 36.6 C 65 18 114/51 L 08/07/20 12:00 36.3 C L 57 L 18 127/70 08/07/20 10:48 36.6 C 65 18 134/76 Pulse Ox 08/07/20 19:32 95 08/07/20 15:42 08/07/20 15:17 97 08/07/20 12:00 95 08/07/20 10:48 97 Laboratory Results Laboratory Results - last 24 hr 08/07/20 08/07/20 05:45 05:45 WBC 5.66 RBC 4.22 L Hgb 13.2 L Hct 39.5 L MCV 93.6 MCH 31.3 MCHC 33.4 RDW Std Deviation 49.0 H RDW Coeff of [place] 14.3 Plt Count 169 MPV 10.9 H Sodium 140 Potassium 4.1 Chloride 110 H Carbon Dioxide 28 Anion Gap 2.0 L BUN 27 H Creatinine 1.02 Est Cr Clr Drug Dosing 49.9 Est GFR ( Amer) 77.9 Est GFR (Non-Af Amer) 67.2 BUN/Creatinine Ratio 26.4 H Glucose 87 Calcium 8.4 L Triglycerides 55 Cholesterol 99 LDL Cholesterol, Calc 45 VLDL Cholesterol, Calc 11 HDL Cholesterol 43 Cholesterol/HDL Ratio 2
--- NOTE | 2020-08-07 22:31 | Myocardial Perfusion Study ---
Date of Service August 07, 2020 Myocardial Perfusion Study [facility] Myocardial Perfusion Study Report [place] Act 112: Negative ONE DAY NUCLEAR MEDICINE EXERCISE/LEXISCAN TECHNETIUM 99M MYOCARDIAL PERFUSION SCAN Indication: History of coronary artery disease, atypical chest pain, nonsustained VT. Baseline ECG: Sinus bradycardia, ventricular rate of 55, first-degree AV block, left anterior fascicular block, Q waves in V1, V2. No ST abnormalities. Stress ECG: Exercise for 6: 25 achieving 8.2 METS. Study discontinued due to fatigue. No exercise-induced chest pain. Due to inability to reach target heart rate with exercise Lexiscan administered on treadmill. No significant ST changes with exercise or Lexiscan. No arrhythmias. Over study heart rate rohan from 55-95 representing 69% MPHR. Peak BP 177/89 Technique: For the stress portion of the study 33.1 mCi of Technetium 99m Cardiolite IV was injected at 9: 45 on 08/07/2020. 30 minutes following the injection, imaging of the heart was performed in multiple projections. For the rest portion of the study, 10.1 mCi of Technetium 99m Cardiolite was injected IV at 8: 00. One hour following the injection, imaging of the heart was performed in the same projections. Findings: Rotating raw images were reviewed in detail. Potential sources of attenuation include imaging with arms at sides, diaphragmatic attenuation, and minimal gut uptake impacting the inferior imaging border of the heart. No significant extracardiac pathologic uptake. Short axis, vertical long axis and horizontal long axis images were reviewed in detail. No visual TID. Normal myocardial perfusion on both stress and rest. Normal LV size. EDV 71 ml. Calculated EF 73%. No regional wall motion abnormalities. SUMMARY: 1. Negative myocardial perfusion study for exercise/Lexiscan induced ischemia. 2. Nondiagnostic stress ECG due to inability to reach target heart rate with exercise/Lexiscan. No exercise-induced arrhythmia. 3. Excellent functional capacity. Exercised 6: 25, achieving 8.2 METS and 69% MPHR. No exercise-induced chest pain. Normal hemodynamic response to exercise. 4. Normal LV size and function. LVEF 73% with no regional wall motion abnormalities. [facility] [place] Myocardial perfusion code Indication for Procedure (1) CAD (coronary artery disease): Procedure Code Procedure 1: Myocardial Perfusion Codes: 45560 Cardiovascular Stress Test, multiple Procedure 2: Myocardial Perfusion Codes: 53075 Cardiovascular Stress Test, interpretation and report
--- NOTE | 2020-08-08 05:10 | Electrocardiogram Report ---
Test Reason : Blood Pressure : / mmHG Vent. Rate : 052 BPM Atrial Rate : 052 BPM P-R Int : 234 ms QRS Dur : 090 ms QT Int : 462 ms P-R-T Axes : 062 -65 024 degrees QTc Int : 429 ms Sinus bradycardia with 1st degree A-V block with Premature atrial complexes Left anterior fascicular block Septal infarct (cited on or before 06-AUG-2020) Abnormal ECG When compared with ECG of 06-AUG-2020 06:07, No significant change was found Confirmed by Steven Cueva ([id number]) on 08/08/2020 5:09:59 AM Referred By: REFERRED SELF Confirmed By:Steven Cueva
[2020-08-08] MEDS: HEPARIN SOD 5,000 UNIT/0.5 ML VIAL SQ SCH (06:09)
[2020-08-08] MEDS: FLUTICASONE/VILANTEROL 100/25MCG 14 PUFFS/INHALER INH SCH (08:15)
[2020-08-08] MEDS: TICAGRELOR 90 MG TAB PO SCH (08:16)
[2020-08-08] MEDS: METOPROLOL SUCC 50MG EXT REL TAB PO SCH (08:16)
[2020-08-08] MEDS: lisinopril 10 MG TAB PO SCH (08:16)
--- NOTE | 2020-08-08 09:34 | Hospitalist Progress Note ---
Date of Service August 08, 2020 Assessment & Plan (1) Atypical chest pain: Serial troponins negative. Nuclear treadmill stress test 08/07 did not show any evidence of stress-induced ischemia. Chest pain resolved; may have been musculoskeletal in nature. (2) CAD (coronary artery disease): Acute AZ ruled out. Echo showed normal LV size, borderline concentric LVH, LVEF 55-60%, no segmental wall motion abnormalities. Nuclear treadmill stress test 08/07 did not show any evidence of stress-induced ischemia. Continue aspirin, tricagrelor, metoprolol, statin. (3) Aortic insufficiency: Trileaflet aortic valve with mild-moderate aortic insufficiency noted on echo. Follow-up per Cardiology. (4) Wide-complex tachycardia: Wide complex tachycardia in ED day of admission. Probable nonsustained ventricular tachycardia. Lytes OK. LVEF OK by echo. Metoprolol dose increased. No recurrence. (5) HTN (hypertension): Continue metoprolol and lisinopril. (6) COPD (chronic obstructive pulmonary disease): Stable. (7) HLD (hyperlipidemia): LDL-c = 45. Continue atorvastatin. (8) DVT prophylaxis: SQ heparin. Ambulate. (9) Discharge planning issues: Discharge to home. Primary care follow-up with [facility] and [facility]. Cardiology follow-up with Dr. Coburn. Admission and Anticipated Discharge Date Admission Date: August 06, 2020 Subjective Doing well. No chest pain, SOB, palpitations. Telemetry data reviewed- sinus bradycardia in 50's / NSR in 60's, no significant arrhythmias. Physical Exam Constitutional: no acute distress Respiratory: no respiratory distress Auscultation: lungs clear to auscultation bilaterally Cardiovascular: Rate/Rhythm: regular rate and regular rhythm Heart Sounds: no gallop, no murmur and no cardiac rub Vessels: no JVD Extremities: no calf tenderness and no edema Gastrointestinal (Abdomen): normal bowel sounds, soft, nontender, no hepatosplenomegaly Musculoskeletal: Extremities: no cyanosis Skin: no rashes, warm and dry Psychiatric: Orientation: alert and oriented x 3 Results & Data Results & Data ([facility]) Vital Signs (Past 12 Hours) Vital Signs Temp Pulse Resp BP Pulse Ox 08/08/20 08:32 36.8 C 59 L 18 151/63 H 96 08/08/20 04:18 36.3 C L 54 L 18 144/78 H 94 08/07/20 23:38 36.5 C 56 L 18 116/62 96
--- NOTE | 2020-08-08 11:15 | Cardiology Progress Note ---
Date of Service August 08, 2020 Assessment & Plan (1) Atypical chest pain: 2. Non-sustained VT 3. Multivessel CAD-- Anterior AZ with SCD 11/2018, post POBA to heavily calcified RCA 12/2018 with residual 70% stenosis 4. Preserved LV function 4. Dyslipidemia 5. Hypertension 6. COPD 7. History of renal cancer Doing well from cardiac standpoint. No recurrent chest pain. No signs of ischemia on stress test and no arrhythmia. On exam well perfused without signs of heart failure. No recurrent NSVT on telemetry. --from cardiac standpoint OK to discharge today --continue increased dose of Toprol XL --continue DAPT with ASA, ticagrelor --continue lisinopril, statin Followup in our office in 3 weeks Admission and Anticipated Discharge Date Admission Date: August 06, 2020 Subjective Patient is doing well and ready to go home. No recurrent chest pain. Treadmill SPECT yesterday negative for ischemia, exercised 6:25 min on SOFIA protocol. No exercise induced chest pain. Normal LV function. Telemetry reviewed -- no recurrent NSVT Review of Systems Review of Systems: All systems reviewed & are unremarkable except as noted in HPI & below Physical Exam Physical Exam: General: Comfortable, no acute distress Lungs: Clear to auscultation bilaterally Cardiac: Regular rate and rhythm, no murmurs Abdomen: Soft, nontender Neuro: Nonfocal Psych: Alert orient x3, normal affect and mood Extremities/Vascular: -- 2+ radial bilaterally -- No edema Results & Data ([facility]) Vital Signs (Past 12 Hours) Vital Signs Temp Pulse Pulse Resp BP Pulse Ox 08/08/20 09:36 36.8 C 59 L 65 18 151/63 H 96 08/08/20 08:32 36.8 C 59 L 18 151/63 H 96 08/08/20 04:18 36.3 C L 54 L 18 144/78 H 94 08/07/20 23:38 36.5 C 56 L 18 116/62 96 PG Care Time/CCT Total # of Minutes Spent Total Time Spent with Patient: Total time spent is greater than 50% in coordination of care (as documented) at patient's floor/unit and/or counseling patient: Coding Level of Care Code 75497 Subseq Hosp Care Lvl 2 Diagnoses Atypical chest pain R07.89
--- NOTE | 2020-08-08 21:55 | Electrocardiogram Report ---
Test Reason : Blood Pressure : / mmHG Vent. Rate : 052 BPM Atrial Rate : 052 BPM P-R Int : 248 ms QRS Dur : 086 ms QT Int : 468 ms P-R-T Axes : 063 -64 023 degrees QTc Int : 435 ms Sinus bradycardia with 1st degree A-V block Left anterior fascicular block Abnormal ECG When compared with ECG of 07-AUG-2020 06:53, Premature atrial complexes are no longer Present Criteria for Septal infarct are no longer Present Confirmed by Steven Cueva ([id number]) on 08/08/2020 9:55:25 PM Referred By: REFERRED SELF Confirmed By:Steven Cueva
--- NOTE | 2020-08-08 22:20 | Discharge Summary ---
Date of Service Date of Admission: 08/06/20 Date of Discharge: 08/08/20 Admission HPI Per Admitting Provider This is an 85-year-old male who has significant past medical history of CAD with history of anterior STEMI 11/2018 with subsequent VT/VF arrest, ischemic cardiomyopathy, HTN, HLD, COPD, history of renal cell carcinoma, oncocytoma who presents to ED secondary to chest pain x1 day. is at bedside. Of significance patient presented with acute VA 11/2018 with VT/VF arrest status post PCI of mid LAD with single AMELIE. He does have multivessel CAD post POBA to heavily calcified RCA 12/2018 with residual 70% stenosis. Diagnosed with ischemic cardiomyopathy, EF improved to 45 to 50%. He completed course of cardiac rehab and is treated with dual antiplatelet therapy. He is followed by Dr. Coburn. Yesterday patient noticed a dull ache that started on the left side of his chest. The pain would come and go lasting minutes up to 30 minutes. It could occur at rest or with exertion and there did not seem to be a pattern. It was not made worse with position change or taking a deep breath. He went to sleep last evening without any chest discomfort and when he woke up this morning and was using the bathroom the chest pain return. It lasted longer than prior episodes approximately 1 hour. called EMS. Patient received 4 baby aspirin, but did not take any nitro. Pain has since been resolved. Pain was nonradiating. He denies any recent heavy lifting or trauma. Symptoms were not associated with diaphoresis, nausea, palpitations or shortness of breath. He states he is fairly active although was more sedentary this summer. After completing course of cardiac rehab he did use his stationary bike, but has not used it since the summer. He does tend to yard work and denies any exertional chest pain or shortness of breath. He denies any history of GERD. He denies recent illness, fever, chills, sweats, lightheadedness, dizziness, nausea, vomit, abdominal pain, changes bowel or urinary habits. He does have frequent nocturia secondary to BPH. In ED patient remained hemodynamically stable. His initial troponin was negative and EKG revealed sinus rhythm with marked sinus arrhythmia at 72 bpm. Left anterior fascicular block. QTc 453. On telemetry in ED patient did have a episode of wide-complex tachycardia for 21 beats. Patient was asymptomatic at this time and resting in bed. His CBC and CMP were generally unremarkable. Chest x-ray negative for acute cardiopulmonary findings. Principal Diagnosis chest pain, noncardiac Discharge Data Allergies Allergy/AdvReac Type Severity Reaction Status Date / Time amoxicillin Allergy Unknown Verified 08/06/20 06:20 ciprofloxacin Allergy Unknown Verified 08/06/20 06:20 Consultations 08/06/20 09:04 Consult Cardiology Routine 08/06/20 09:29 ED Decision to Admit Stat Hospital Course (1) Atypical chest pain: Presented with atypical nonexertional chest pain. Serial troponins negative. No segmental wall motion abnormalities on echo. Nuclear treadmill stress test 08/07 did not show any evidence of stress-induced ischemia. Chest pain resolved; may have been musculoskeletal in nature. (2) CAD (coronary artery disease): Acute VA ruled out. Echo showed normal LV size, borderline concentric LVH, LVEF 55-60%, no segmental wall motion abnormalities. Nuclear treadmill stress test 08/07 did not show any evidence of stress-induced ischemia. Continue aspirin, tricagrelor, metoprolol, statin. (3) Aortic insufficiency: Trileaflet aortic valve with mild-moderate aortic insufficiency noted on echo. Follow-up per Cardiology. (4) Wide-complex tachycardia: Wide complex tachycardia in ED day of admission. Probable nonsustained ventricular tachycardia. Lytes OK. LVEF OK by echo. Metoprolol dose increased. No recurrence. (5) HTN (hypertension): Continue metoprolol and lisinopril. (6) COPD (chronic obstructive pulmonary disease): Stable. (7) HLD (hyperlipidemia): LDL-c = 45. Continue atorvastatin. (8) DVT prophylaxis: SQ heparin. Ambulating. (9) Discharge planning issues: Discharged to home. Primary care follow-up with [facility] and [facility]. Cardiology follow-up with Dr. Coburn. Total Time Total Time Spent Total Time Spent (In Minutes): 30 Discharge Plan Discharge Items Patient Disposition: Home - Self-Care Reason For Visit: chest pain Discharge Diagnosis: chest pain- no sign of heart attack nonsustained ventricular tachycardia- irregular heart rhythm Condition on Discharge: Good Activity: Resume your previous activity Non-emergency contact: Primary Care Provider, Hospitalist and Applications Analyst Call non-emergency contact if: you have any medication questions Follow-up/Referrals: Amilcar Coburn MD [Physician] - 09/02/20 10:00 am Silvina Carlisle MD [Primary Care Provider] - (Date & Time 08/11/2020 11:00 AM Silvina Carlisle MD Department [facility] [place] ) Diet: Heart Healthy [facility] Attending Provider Instructions: MEDICATION CHANGES: Increase metoprolol succinate (Toprol XL) to 100 mg twice a day. (Treats coronary disease, high blood pressure, and irregular heart rhythms.) SUMMARY OF TEST RESULTS: No sign of a heart attack. Heart monitor in Emergency Department showed an irregular heart rhythm for a few seconds. Looked like ventricular tachycardia. It only happened one time during your hospital stay. Echocardiogram and stress test showed that your heart muscle is strong. No sign of any severe blockage in coronary arteries. LDL cholesterol was 45. This is a very good result. Continue taking atorvastatin (Lipitor). OTHER INSTRUCTIONS: Seek medical attention if you have: * temperature above 101 * chest pain or trouble breathing * unusual weakness, lightheadedness, or loss of consciousness * abdominal pain, nausea, vomiting * diarrhea, dark stools or bloody stools * any unanswered questions or concerns Call 911 if symptoms are severe. Please take good care of yourself. Call if you have any questions or problems. You can reach a [facility] hospitalist on duty at [facility] 24 hours a day by calling [phone]. My cell # is [phone]. Pending Studies at Discharge: No Stand-Alone Forms: My [facility], Smoking Cessation Medications and DC Order Prescriptions: New metoprolol succinate 100 mg tablet extended release 24 hr 100 mg PO BID Qty: 180 RF: 3 Continued Brilinta 90 mg tablet 90 mg PO BID Qty: 180 RF: 3 atorvastatin 80 mg tablet 80 mg PO HS Qty: 90 RF: 3 fluticasone propion-salmeterol 250-50 mcg/dose blister with device 1 puff Inhalation BID RF: 0 nitroglycerin 0.4 mg tablet, sublingual 0.4 mg sublingual UD PRN (Reason: Chest Pain) RF: 0 aspirin [Ecotrin Low Strength] 81 mg tablet,delayed release (DR/EC) 81 mg PO HS RF: 0 lisinopril 10 mg tablet 10 mg PO QAM RF: 0 Discontinued metoprolol succinate 100 mg tablet extended release 24 hr 100 mg PO QAM RF: 0 Discharge Orders: Discharge Order (Routine); Ordered 08/08/20 Ordered By: Ming Hudson Admission Data Admit Date/Time: 08/06/20 08:25 Attending Provider: Ming Hudson Admit Provider: Ming Hudson Primary Care Provider: Silvina Carlisle Other Providers: Ming Hudson ; Amilcar Coburn Other Interventions: Discharge Summary Assessment (RN) Last Done: 08/08/20 09:36
== END 2020-08-08 11:16 | disposition home or self-care (01) ==
LOC: 2S 06:01 → ED 06:01 → 2S 10:23

== ENCOUNTER 2025-02-23 17:07 | Inpatient (IN) ==
--- OUTSIDE RECORDS SUMMARY | 2025-02-23 19:08 | External Medical Summary ---
Author Name Unknown Address Unknown Organization : Laboratory Report Ordering Provider Test Date Status ANJANA DAILY 02/23/2025 15:15:11 Final Observation Date Value Abnormality Reference (Units ) Status Troponin T 02/23/2025 15:15:11 127 Above upper panic limits <=22 (ng/L) Final Performing Location
--- OUTSIDE RECORDS SUMMARY | 2025-02-23 19:08 | External Medical Summary ---
Author Name Unknown Address Unknown Organization : Laboratory Report Ordering Provider Test Date Status ANJANA DAILY 02/23/2025 15:15:11 Final Observation Date Value Abnormality Reference (Units ) Status Lipase 02/23/2025 15:15:11 12 Below low normal 13- 60 (U/L) Final Performing Location
--- OUTSIDE RECORDS SUMMARY | 2025-02-23 19:08 | External Medical Summary ---
Author Name Unknown Address Unknown Organization : Laboratory Report Ordering Provider Test Date Status ANJANA DAILY 02/23/2025 15:15:11 Final Exclude Heart Failure: <300 pg/mL
Diagnose Heart Failure:
Age <50 yr: >450 pg/mL
50-75 yr: >900 pg/mL
>75 yr: >1800 pg/mL
GFR is 30-59 mL/min: >1200 pg/mL or Age- adjusted values
GFR <30 mL/min: do not use, not reliable

Prognostic threshold: 1000 pg/mL Observation Date Value Abnormality Reference (Units ) Status BNP, Pro-hormone 02/23/2025 15:15:11 549 Above high no rmal <300 (pg/mL) Final Performing Location
--- OUTSIDE RECORDS SUMMARY | 2025-02-23 19:08 | External Medical Summary ---
Author Name Unknown Address Unknown Organization : Laboratory Report Ordering Provider Test Date Status LIZBETH PETERS 02/23/2025 17:05:36 Final Warfarin Therapy
INR: 2 .0-3.0 conventional anticoagulation
INR: 2.5- 3.5 high intensity anticoagulation Observation Date Value Abnormality Reference (Units ) Status PT 02/23/2025 17:05:36 13.9 11.6-15.2 (seconds) Final INR 02/23/2025 17:05:36 1.1 0.8-1.2 Final Performing Location
--- OUTSIDE RECORDS SUMMARY | 2025-02-23 19:08 | External Medical Summary ---
Author Name Unknown Address Unknown Organization : Laboratory Report Ordering Provider Test Date Status ANJANA DAILY 02/23/2025 15:15:11 Final Observation Date Value Abnormality Reference (Units ) Status SYNC LEUKOCYTES IN BLOOD BY AUTOMATED COUNT 02/23/2025 15:15:11 7.28 4.00-10.80 (K/uL) Final Segs 02/23/2025 15:15:11 80.7 Above high normal 40.0-75.0 (%) Final Lymphs % 02/23/2025 15:15:11 9.6 Below low normal 18.0-42.0 (%) Final Monos 02/23/2025 15:15:11 6.7 1.0-11.0 (%) Final Eosinophils 02/23/2025 15:15:11 2.9 0.0-6.0 (%) Final Basos 02/23/2025 15:15:11 0.1 0.0-2.0 (%) Final Absolute Segs 02/23/2025 15:15:11 5.87 1.80-7.70 (K/uL) Final Lymphs, absolute 02/23/2025 15:15:11 0.70 Below low normal 1.00-4.80 (K/ul) Final Monos, Abs 02/23/2025 15:15:11 0.49 0.00-1.10 (K/uL) Final Eos, Abs 02/23/2025 15:15:11 0.21 0.00-0.70 (K/uL) Final Basos, Abs 02/23/2025 15:15:11 0.01 0.00-0.20 (K/uL) Final Performing Location
--- OUTSIDE RECORDS SUMMARY | 2025-02-23 19:08 | External Medical Summary ---
Author Name Unknown Address Unknown Organization : Laboratory Report Ordering Provider Test Date Status LIZBETH PETERS 02/23/2025 17:05:36 Final Anticoagulation may affect t esting. Refer to [facility] Test Catalog for a list of effects. Observation Date Value Abnormality Reference (Units ) Status aPTT panel - Platelet poor plasma 02/23/2025 17:05:36 32 21-38 (seconds) Final Performing Location
--- OUTSIDE RECORDS SUMMARY | 2025-02-23 19:08 | External Medical Summary ---
Author Name Unknown Address Unknown Organization : Laboratory Report Ordering Provider Test Date Status ANJANA DAILY 02/23/2025 15:15:11 Final Observation Date Value Abnormality Reference (Units ) Status BUN 02/23/2025 15:15:11 23 Above high normal 6-20 (mg/dL) Final Creatinine 02/23/2025 15:15:11 1.0 0.6-1.2 (mg/dL) Final Glomerular filtration rate/1.73 sq M.predicted [Volume Rate/Area] in Serum, Plasma or Blood by Creatinine-based formula (CKD-EPI) 02/23/2025 15:15:11 70 >=60 (mL/min) Final eGFR is calculated based on the CKD-EPI 2020 equation. Sodium 02/23/2025 15:15:11 138 135-146 (m mol/L) Final Potassium 02/23/2025 15:15:11 4.0 3.5-5.1 (m mol/L) Final Cl 02/23/2025 15:15:11 105 98-107 (mm ol/L) Final CO2 02/23/2025 15:15:11 22 22-32 (mmo l/L) Final Anion gap 02/23/2025 15:15:11 11 7-15 (mmol /L) Final Glucose 02/23/2025 15:15:11 177 Above high normal 70 -120 (mg/dL) Final Albumin 02/23/2025 15:15:11 3.3 Below low normal 3.8 -5.0 (g/dL) Final AST (Aspartate aminotransferase) 02/23/2025 15:15:11 20 10-50 (U/L) Fin al Alk Phos 02/23/2025 15:15:11 88 35-130 (U/ L) Final Bilirubin, Total 02/23/2025 15:15:11 0.4 <=1 .2 (mg/dL) Final Calcium 02/23/2025 15:15:11 9.1 8.4-10.2 ( mg/dL) Final Protein 02/23/2025 15:15:11 5.8 Below low normal 6.0 -8.3 (g/dL) Final ALT (Alanine aminotransferase) 02/23/2025 15:15:11 13 10-50 (U/L) Andrea al Performing Location
--- OUTSIDE RECORDS SUMMARY | 2025-02-23 19:08 | External Medical Summary ---
Author Name Unknown Address Unknown Organization : Laboratory Report Ordering Provider Test Date Status LORRAINEARARACHID 02/23/2025 17:05:36 Final Observation Date Value Abnormality Reference (Units ) Status Heparin, unfractionated level 02/23/2025 17:05:36 <0.10 <0.10 (IU/mL) Final Anti-Xa Therapeutic Ranges<b r/>
Neurology/Stroke: 0.15 to 0.35 IU/mL
Cardiology/Acute Coronory Syndrome: 0.3 to 0.6 IU/mL
Deep Vein Thrombosis/Pulmonary Embolus (DVT/PE): 0.3 to 0.7 IU/mL

Note: Hemolysis, icterus, lipemia and very low antithrombin III activity (< 30%) may falsely decrease anti-Xa levels. If anti-Xa subtherapeutic after 3 consecutive titrations, recommend APTT and antithrombin III levels. If APTT >120 seconds rule out hemolysis or icterus. Consult laboratory medicine with any questions. Performing Location
--- OUTSIDE RECORDS SUMMARY | 2025-02-23 19:08 | External Medical Summary ---
Author Name Unknown Address Unknown Organization : Laboratory Report Ordering Provider Test Date Status ANJANA DAILY 02/23/2025 15:15:11 Final Warfarin Therapy
INR: 2 .0-3.0 conventional anticoagulation
INR: 2.5- 3.5 high intensity anticoagulation Observation Date Value Abnormality Reference (Units ) Status PT 02/23/2025 15:15:11 13.8 11.6-15.2 (seconds) Final INR 02/23/2025 15:15:11 1.1 0.8-1.2 Final Performing Location
--- OUTSIDE RECORDS SUMMARY | 2025-02-23 19:08 | External Medical Summary ---
Author Name Unknown Address Unknown Organization : Laboratory Report Ordering Provider Test Date Status ANJANA DAILY 02/23/2025 15:15:11 Final Observation Date Value Abnormality Reference (Units ) Status WBC, Total 02/23/2025 15:15:11 7.28 4.00-10.8 0 (K/uL) Final RBC 02/23/2025 15:15:11 4.51 4.50-5.25 (M/uL) Final Hemoglobin 02/23/2025 15:15:11 14.1 14.0-16.8 (g/dL) Final HCT 02/23/2025 15:15:11 42.5 40.0-48.4 (%) Final MCV 02/23/2025 15:15:11 94.2 82.0-99.5 (fL) Final MCH 02/23/2025 15:15:11 31.3 27.0-34.0 (pg) Final MCHC 02/23/2025 15:15:11 33.2 32.0-36.0 (g/dL) Final RDW 02/23/2025 15:15:11 13.9 11.5-15.5 (%) Final Platelets 02/23/2025 15:15:11 159 140-400 (K /uL) Final MPV 02/23/2025 15:15:11 10.6 6.6-11.1 ( fL) Final Performing Location
--- OUTSIDE RECORDS SUMMARY | 2025-02-23 19:08 | External Medical Summary ---
Author Name Unknown Address Unknown Organization : Laboratory Report Ordering Provider Test Date Status LIZBETH PETERS 02/23/2025 15:53:56 Final Observation Date Value Abnormality Reference (Units ) Status Troponin T 02/23/2025 15:53:56 178 Above upper panic limits <=22 (ng/L) Final Performing Location
--- OUTSIDE RECORDS SUMMARY | 2025-02-23 19:08 | External Medical Summary ---
Author Name Unknown Address Unknown Organization : Laboratory Report Ordering Provider Test Date Status LIZBETH PETERS 02/23/2025 17:05:36 Final Observation Date Value Abnormality Reference (Units ) Status WBC, Total 02/23/2025 17:05:36 10.16 4.00-10.8 0 (K/uL) Final RBC 02/23/2025 17:05:36 4.54 4.50-5.25 (M/uL) Final Hemoglobin 02/23/2025 17:05:36 14.3 14.0-16.8 (g/dL) Final HCT 02/23/2025 17:05:36 42.3 40.0-48.4 (%) Final MCV 02/23/2025 17:05:36 93.2 82.0-99.5 (fL) Final MCH 02/23/2025 17:05:36 31.5 27.0-34.0 (pg) Final MCHC 02/23/2025 17:05:36 33.8 32.0-36.0 (g/dL) Final RDW 02/23/2025 17:05:36 13.9 11.5-15.5 (%) Final Platelets 02/23/2025 17:05:36 171 140-400 (K /uL) Final MPV 02/23/2025 17:05:36 10.6 6.6-11.1 ( fL) Final Performing Location
[2025-02-23] MEDS ORDERED: NITROGLYCERIN SL 0.4 MG/TAB TAB SL PRN (19:55)
[2025-02-23] MEDS ORDERED: ACETAMINOPHEN 325 MG TAB PO PRN (19:55)
[2025-02-23] MEDS ORDERED: PROMETHAZINE 6.25 MG/50.25 ML BAG IV PRN (19:56)
[2025-02-23] MEDS ORDERED: MoRPHine SULFATE 2 MG/ML CARP IV PRN (19:56)
--- NOTE | 2025-02-23 20:07 | History & Physical Report ---
Date of Service February 23, 2025 Assessment & Plan (1) NSTEMI (non-ST elevated myocardial infarction): Plan: NSTEMI hx CAD status post stent Rule out PE given lack of response to nitroglycerin Hypertension, elevated secondary to illness chronic diastolic heart failure (EF 55%, TTE 2019), some congestion on imaging CAD status post stent PAF, patient NSR history VT/VF arrest mild to moderate AR COPD, not in acute exacerbation hyperlipidemia, on statin Rx left kidney cancer status post surgery Hyperglycemia ro DM Admit to PCU Aspirin, beta-letty, statin Rx, IV heparin Titrate home BP meds Follow troponin CT chest PE study TTE, Cardiology consult re: ACS (Patient known to [facility] N.p.o. after midnight in anticipation of diagnostic cardiac catheterization in a.m. Update lipid profile, check hemoglobin A1c DVT prophylaxis. IV heparin Full code Patient send requesting updates providers. Mr. Milton Varner, contact #[phone]. Text document was generated using [employer] voice recognition software. It may contain grammatical or spelling errors. Kindly contact undersigned for clarification of any documentation item in question. ADDENDUM : Patient later had recurrence of substernal pain relieved by oxycodone Rx around 10 PM. EKG as per my interpretation: Rate 70, NSR, LAD, LAFB, LVH, ST elevation anterolateral leads, T wave inversion inferior leads, septal infarct Case discussed with Dr. Briones (beet worker on-call). No Heart Alert for now after review of EKG and given patient comfort. Admission and Anticipated Discharge Date Admission Date: February 23, 2025 History of Present Illness Chief Complaint: Chest pain Primary Care Provider: Rylee Farrar PA-C History obtained from patient, family, and records. Medical history significant for chronic diastolic heart failure (EF 55%, TTE 2019), CAD status post stent, PAF, history VT/VF arrest, mild to moderate AR, COPD, hypertension, hyperlipidemia, BPH, left kidney cancer status post surgery, [place] exposure. Last confinement 2019 for atypical chest pain. Patient substernal heaviness across his chest yesterday after dinner. Denies SOB or abdominal pain. No cough symptoms. Compliant with home medications. No unusual stress at home. No relief with nitroglycerin intake. EMS called the patient's home. Patient given aspirin and nitroglycerin. Discomfort unrrelieved. Patient brought to [facility] ER. SBP 180s upon arrival at the ER. Chest pain relieved by morphine administration. ST segment abnormalities on EKG. Troponin noted to be 178. BNP noted to be 549. IV heparin initiated at the ER. Patient transferred to [facility] to be evaluated by patient's [facility] child caregiver. Patient complained of chest pain upon arrival at [facility] PCU unit. Chest pain improving after oxycodone administration. Medical History as above Surgical History : Kidney surgery, prostate biopsy Family History : DM Personal/Social history : Non-smoker, rare EtOH intake, retired store employee Allergies Allergy/AdvReac Type Severity Reaction Status Date / Time amoxicillin Allergy Vomiting Verified 02/25/25 12:39 ciprofloxacin Allergy Vomiting Verified 02/25/25 12:39 Home Medications Medication Instructions Recorded Confirmed Type aspirin 81 mg tablet,delayed 81 mg PO HS 08/06/20 02/23/25 History release (Ecotrin Low Strength) nitroglycerin 0.4 mg sublingual 0.4 mg sublingual UD PRN Chest Pain 08/06/20 02/23/25 History tablet metoprolol succinate 50 mg 50 mg PO BID #180 tabs 02/02/23 02/23/25 Rx tablet,extended release 24 hr fluticasone 250 mcg-salmeterol 50 1 inh inhalation BID 05/18/23 02/23/25 History mcg/dose blistr powdr for inhalation (Wixela Inhub) cholecalciferol (vitamin D3) 25 25 mcg PO DAILY 05/04/24 02/23/25 History mcg (1,000 unit) capsule lisinopril 20 mg tablet 20 mg PO QAM #90 tabs 05/04/24 02/23/25 Rx atorvastatin 40 mg tablet 40 mg PO HS 02/18/25 02/23/25 History mecobalamin (vitamin B12) 1,000 1,000 mcg PO DAILY 02/18/25 02/23/25 History mcg chewable tablet Past Med/Surg History Problem List (Updated 02/24/25 @ 13:00 by Karlos Walters MD) Ischemic cardiomyopathy Anterior wall myocardial infarction NSTEMI (non-ST elevated myocardial infarction) Wide-complex tachycardia Aortic insufficiency Oncocytoma COPD (chronic obstructive pulmonary disease) HLD (hyperlipidemia) HTN (hypertension) CAD (coronary artery disease) Renal cell carcinoma Medical History Aortic insufficiency CAD (coronary artery disease) COPD (chronic obstructive pulmonary disease) HLD (hyperlipidemia) HTN (hypertension) Ischemic cardiomyopathy Oncocytoma Renal cell carcinoma Wide-complex tachycardia Surgical History History of partial nephrectomy Left 2/2 to renal cell ca History of prostate biopsy S/P drug eluting coronary stent placement Per Dr. Coburn note 11/06/19: "-Acute CT with VT/VF arrest-- status post PCI of mid LAD with single AMELIE 2. Multivessel CAD-- post POBA to heavily calcified RCA 12/2018 with residual 70% stenosis" S/P PTCA (percutaneous transluminal coronary angioplasty) Family History Father Carotid artery disease Mother , 92 No problems noted. Denies family history of Coronary heart disease Social History Smoking Status: Never smoker Second Hand Exposure: No; Do You Dip or Chew Tobacco: No; Tobacco Cessation Education Requested by Patient: No Hx Alcohol Use: Yes Alcohol type: other Hx Substance Use: No Preferred Language: Japanese Communication Ability: Effective Direct Marketing Intern Required: No Beliefs That Will Affect Care: None marital status: Current Living Situation: Family Current Living Situation Comment: Lives at home with son/daughter in law current occupational status: retired Other Information That Helps Us Care for You: No Feels Safe at Home: Yes Safety Concerns: Feels Safe At This Time Assistive Devices: Cane and Walker Review of Systems Review of Systems: As per HPI, all other systems reviewed and negative Physical Exam Physical Exam: GENERAL: pleasant, slightly anxious, no respiratory distress SKIN: Normal color, warm HEENT: Alopecia, pink palpebral conjunctivae, no ptosis, dry buccal mucosa NECK : Supple, no tenderness CHEST : CTA, no tenderness HEART : RRR, no obvious murmurs ABDOMEN: no distention, nontender EXTREMITIES : No LE swelling/tenderness, palpable pulses, no other conspicuous deformities noted NEUROLOGIC : Coherent, no facial asymmetry, no other gross focality Results & Data Results & Data Vital Signs (Past 12 Hours) Vital Signs Temp Pulse Resp BP Pulse Ox O2 Del Method 36.5 C 75 18 144/88 H 95 Room Air 02/23/25 19:17 02/23/25 19:17 02/23/25 19:17 02/23/25 19:17 02/23/25 19:17 02/23/25 19:17 Laboratory Results [facility] workup (02/23/2025) Hemoglobin 14, hematocrit 42, WBC 10, platelets 171 Sodium 138, potassium 4, chloride 105, CO2 22, BUN 24 creatinine 1, glucose 177, lipase within normal limits Troponin noted to be 178. BNP noted to be 549. Chest x-ray : Mild interstitial opacities possible interstitial edema. Diagnostic Findings EKG as per my interpretation ([facility], 02/23) Rate 65, NSR, LAD, LAFB, T wave inversion inferior leads, septal infarct
[2025-02-23 20:58] LABS: Partial Thromboplastin Ratio 2.9; Partial Thromboplastin Time 77 Seconds (21-31)
[2025-02-23 20:59] LABS: Troponin I High Sensitivity 3723.6 pg/ml (0-20)
[2025-02-23 21:01] LABS: ANTI-Xa, UFH(UnfractionatedHep 0.71 IU/ml (0.3-0.7)
[2025-02-23] MEDS: oxyCODONE HCL IR 5 MG TAB (IMMEDIATE RELEASE) PO PRN (22:12)
[2025-02-23] MEDS ORDERED: Heparin IV Adult Wt-Based Low-Dose *NO* INITIAL Bolus Protocol IV STA (22:16)
[2025-02-23] MEDS: HEPARIN 25000 UNIT/500 ML D5W 25,000 UNITS/500 ML BAG IV SCH (22:40)
[2025-02-23] MEDS: METOPROLOL TARTRATE 1 MG/ML VIAL IV STA (22:41)
[2025-02-23] MEDS: OPTIRAY 320 125ml IV ONE (23:01)
[2025-02-23] MEDS: ATORVASTATIN 40 MG TAB PO SCH (23:28)
[2025-02-23] MEDS: ALBUMIN 25% 12.5 GM/50 ML VIAL IV ONE (23:41)
[2025-02-23] MEDS ORDERED: hydrOXYzine HCl 10 MG TAB PO PRN (23:58)
--- NOTE | 2025-02-24 04:42 | CT Scan Report ---
Exam(s): CTA CHEST EXAM: CT Chest With Intravenous Contrast CLINICAL HISTORY: Reason for exam: cp. TECHNIQUE: Axial computed tomographic images of the chest with intravenous contrast. CTDI is 33.54 mGy and DLP is 618.61 mGy-cm. Automated exposure control was utilized for the study. A dose lowering technique was utilized adhering to the principles of ALARA. COMPARISON: No relevant prior studies available. FINDINGS: Pulmonary arteries: Unremarkable. No pulmonary embolism. 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 Moderate aortic calcifications. Lungs: Peribronchial thickening and septal thickening bilaterally. Mild basilar atelectasis or airspace disease. No mass. Pleural space: Small bilateral pleural effusions. No pneumothorax. Heart: Cardiomegaly. Marked coronary calcifications. No significant pericardial effusion. No evidence of RV dysfunction. Bones/joints: Degenerative changes of the shoulders, notably on the right. Degenerative changes of the spine. Old sternal fracture deformity. No dislocation. Soft tissues: Unremarkable. Lymph nodes: Unremarkable. No enlarged lymph nodes. Kidneys and ureters: Partially visualized 2.5 cm right renal lesion, not adequately characterized. IMPRESSION: 1. Cardiomegaly, small effusions, bilateral peribronchial thickening and septal thickening. May represent pulmonary edema. 2. 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 3. Partially visualized 2.5 cm right renal lesion, not adequately characterized. Correlate with priors or consider follow-up ultrasound/MR non-emergently. Electronically signed by: Minh Yanes M.D. 02/24/25 04:41 AM
[2025-02-24 06:10] LABS: Basophils # (auto) 0.02 K/uL (0.00-0.20); Basophils % (auto) 0.2 %; Eosinophils # (auto) 0.09 K/uL (0.00-0.50); Eosinophils % (auto) 0.9 %; Hematocrit (blood only) 38.8 % (42.0-52.0); Hemoglobin 13.3 g/dl (14.0-18.0); Immature Granulocytes # (auto) 0.02 K/uL (0.01-0.20); Immature Granulocytes % (auto) 0.2 %; Lymphocytes # (auto) 0.98 K/uL (1.20-3.40); Lymphocytes % (auto) 10.2 %; Mean Corpuscular Hemoglobin 31.1 pg (25.0-34.0); Mean Corpuscular Hgb Conc 34.3 g/dL (32.0-36.0); Mean Corpuscular Volume 90.9 fL (80.0-100.0); Mean Platelet Volume 10.7 fL (9.4-12.4); Monocytes # (auto) 0.76 K/uL (0.11-0.59); Monocytes % (auto) 7.9 %; Neutrophils # (auto) 7.78 K/uL (1.40-6.50); Neutrophils % (auto) 80.6 %; Platelet Count 145 K/uL (130-400); RDW Coefficient of Variation 13.9 % (11.5-14.5); RDW Standard Deviation 46.5 fL (36.4-46.3); Red Blood Count 4.27 M/uL (4.70-6.10); White Blood Count 9.65 K/ul (4.8-10.8)
[2025-02-24 07:46] LABS: BUN Creatinine Ratio 26.4 (10-20); Calcium 9.2 mg/dl (8.6-10.3); Chol HDL Ratio 3.2 (0-5); Creatinine Clr Calc Pharmacy 49.3 ml/min; Potassium 4.1 mmol/L (3.5-5.1)
[2025-02-24 07:58] LABS: ANTI-Xa, UFH(UnfractionatedHep 0.31 IU/ml (0.3-0.7)
[2025-02-24 07:59] LABS: Troponin I High Sensitivity 4894.6 pg/ml (0-20)
[2025-02-24] MEDS: CYANOCOBALAMIN (B-12) 500 MCG TABLET PO SCH (08:07)
[2025-02-24] MEDS: lisinopril 20 MG TAB PO SCH (08:07)
[2025-02-24] MEDS: CHOLECALCIFEROL 25 MCG (1000 UNITS) TAB PO SCH (08:08)
[2025-02-24] MEDS: METOPROLOL SUCC 50MG EXT REL TAB PO SCH (08:08)
[2025-02-24] MEDS: FLUTICASONE/VILANTEROL 100/25MCG 14 PUFFS/INHALER INH SCH (08:08)
[2025-02-24 08:23] LABS: Estimated Average Glucose 111 mg/dl; Hemoglobin A1C 5.5 % (4.5-5.6)
--- NOTE | 2025-02-24 10:28 | XCELERA ---
[id number]
--- NOTE | 2025-02-24 12:43 | Cardiology Consultation ---
Date of Consultation February 24, 2025 Assessment & Plan (1) Anterior wall myocardial infarction: -Currently pain-free on intravenous heparin. -Case discussed with Dr. Coburn. Will proceed with a cardiac catheterization tomorrow. -Emergent cardiac catheterization should he develop recurrent symptoms. -Fortunately, he is hemodynamically and electrically stable. -No evidence of congestive heart failure. (2) Ischemic cardiomyopathy: -Echocardiogram with large area of anteroapical akinesis. No thrombus. -LVEF of 20 to 25%. -Continue metoprolol succinate and lisinopril for now. (3) CAD (coronary artery disease): -Extensive history as described. (4) HTN (hypertension): -Controlled on current regimen. (5) HLD (hyperlipidemia): -Continue atorvastatin. Consider increasing dose. History of Present Illness Attending Physician: Kathy Hill MD History of Present Illness Mr. Varner is an 89-year-old male admitted yesterday with a chest pain syndrome and an abnormal EKG. This consultation was ordered to assist in his cardiac management. Of note, the patient typically follows with Dr. Coburn in the outpatient setting. The patient was in his usual state of health until approximately 12:30 PM yesterday afternoon. After eating his lunch, he noticed a substernal chest "heaviness" which was persistent. He felt that this was related to the food that he ate. He tried 2 sublingual nitroglycerin tablets without success. He then presented to the [facility] for an evaluation. EKGs at that institution noted minor ST elevation in the anterolateral leads. The patient was placed on intravenous heparin and transferred to our institution for further care. He did receive several sublingual nitroglycerin tablets en route without success. Apparently, on arrival here, he was given narcotics. His discomfort resolved. The covering claims investigator was contacted according to the record. He opted not to take the patient to the Transformation Analyst as the patient was pain-free. The patient has remained chest pain-free since receiving narcotics yesterday. Currently, he is resting comfortably in bed and without complaints. The patient does have an extensive cardiac history. He suffered an anterior [place] and cardiac arrest in November 2018. He had a drug-eluting stent placed in the mid LAD and a balloon angioplasty of the ostium of D2. In a staged procedure, he had a balloon angioplasty of a late mid RCA stenosis. The patient has done well from a cardiac perspective since that time. He did have an episode of sustained, symptomatic ventricular tachycardia back in [place] 2019. His workup included a normal Lexiscan stress test. Echocardiogram also noted normal left ventricular systolic function without wall motion abnormalities. His beta-letty dose was increased, however, he developed side effects. He did have 1 episode of atrial fibrillation back in November 2018. He is not currently on long-term anticoagulation as he was felt to be at high risk. Past medical and surgical history 1. Coronary artery diseasesee above 2. Anterior MIFebruary 2019 3. Mid LAD DESFebruary 2018 4. POBA of ostial [id number] 2018 5. POBA of RCAMarch 2018 6. Mild aortic insufficiency 7. Paroxysmal atrial fibrillationFebruary 2018 8. Paroxysmal ventricular tachycardiaOct2019 9. Hypertension 10. Hypercholesterolemia 11. COPD 12. Renal cell carcinoma 13. Left partial nephrectomy 14. DNR Social history , lives with son and [id number] in [place] No tobacco Rare alcohol Family history Noncontributory Review of systems A 10 point review of system was undertaken and negative except that described above. Allergies Allergy/AdvReac Type Severity Reaction Status Date / Time amoxicillin Allergy Vomiting Verified 02/23/25 19:24 ciprofloxacin Allergy Vomiting Verified 02/23/25 19:24 Home Medications Medication Instructions Recorded Confirmed Type aspirin 81 mg tablet,delayed 81 mg PO HS 08/06/20 02/23/25 History release (Ecotrin Low Strength) nitroglycerin 0.4 mg sublingual 0.4 mg sublingual UD PRN Chest Pain 08/06/20 02/23/25 History tablet metoprolol succinate 50 mg 50 mg PO BID #180 tabs 02/02/23 02/23/25 Rx tablet,extended release 24 hr fluticasone 250 mcg-salmeterol 50 1 inh inhalation BID 05/18/23 02/23/25 History mcg/dose blistr powdr for inhalation (Wixela Inhub) cholecalciferol (vitamin D3) 25 25 mcg PO DAILY 05/04/24 02/23/25 History mcg (1,000 unit) capsule lisinopril 20 mg tablet 20 mg PO QAM #90 tabs 05/04/24 02/23/25 Rx atorvastatin 40 mg tablet 40 mg PO HS 02/18/25 02/23/25 History mecobalamin (vitamin B12) 1,000 1,000 mcg PO DAILY 02/18/25 02/23/25 History mcg chewable tablet Patient History Medical History Aortic insufficiency CAD (coronary artery disease) COPD (chronic obstructive pulmonary disease) HLD (hyperlipidemia) HTN (hypertension) Ischemic cardiomyopathy Oncocytoma Renal cell carcinoma Wide-complex tachycardia Surgical History History of partial nephrectomy Left 11/11 to renal cell ca History of prostate biopsy S/P drug eluting coronary stent placement Per Dr. Coburn note 11/06/19: "-Acute [place] with VT/VF arrest-- status post PCI of mid LAD with single AMELIE 2. Multivessel CAD-- post POBA to heavily calcified RCA 12/2018 with residual 70% stenosis" S/P PTCA (percutaneous transluminal coronary angioplasty) Family History Father Carotid artery disease Mother , 92 No problems noted. Denies family history of Coronary heart disease Social History Smoking Status: Never smoker Second Hand Exposure: No; Do You Dip or Chew Tobacco: No; Tobacco Cessation Education Requested by Patient: No Hx Alcohol Use: Yes Alcohol type: other Hx Substance Use: No Preferred Language: East Timorese Communication Ability: Effective Quill Buncher And Sorter Required: No Beliefs That Will Affect Care: None marital status: Current Living Situation: Family Current Living Situation Comment: Lives at home with son/daughter in law current occupational status: retired Other Information That Helps Us Care for You: No Feels Safe at Home: Yes Safety Concerns: Feels Safe At This Time Assistive Devices: Cane, Glasses and Hearing Aid - Bilateral Physical Exam Physical Exam: In general this is a well-developed well-nourished elderly male in no acute distress. HEENT exam is negative. Neck reveals normal carotid upstrokes without bruits. Jugular venous pressure is flat at 90. There is no thyromegaly. Cardiovascular exam reveals a regular rhythm with distant heart sounds. No obvious murmurs. Lungs are clear without rales, rhonchi, or wheezes. Abdomen is soft without bruits. Extremities reveal intact radial artery and posterior tibial pulses bilaterally. There is no peripheral edema. Results & Data Vital Signs (Past 12 Hours) Vital Signs Temp Pulse Resp BP Pulse Ox O2 Del Method 02/24/25 11:42 36.6 C 66 18 132/85 95 Room Air 02/24/25 07:31 37.0 C 68 18 138/73 96 Room Air 02/24/25 02:02 36.7 C 78 18 125/74 93 Room Air PG Care Time/CCT Total # of Minutes Spent Total Time Spent with Patient: Total time spent is greater than 50% in coordination of care (as documented) at patient's floor/unit and/or counseling patient: Coding Level of Care Code 38912 INT INP/OBS CARE 3/75MIN Diagnoses Anterior wall myocardial infarction I21.09 Ischemic cardiomyopathy I25.5 CAD (coronary artery disease) I25.10 HTN (hypertension) I10 HLD (hyperlipidemia) E78.5
--- NOTE | 2025-02-24 14:02 | Electrocardiogram Report ---
Test Reason : Blood Pressure : */* mmHG Vent. Rate : 70 BPM Atrial Rate : 70 BPM P-R Int : 240 ms QRS Dur : 82 ms QT Int : 428 ms P-R-T Axes : 85 -56 -9 degrees QTcB Int : 462 ms Sinus rhythm with 1st degree A-V block Premature atrial complexes Left axis deviation Inferior infarct , age undetermined Anterolateral infarct ACUTE AR / STEMI Abnormal ECG When compared with ECG of 18-May-2023 21:46, Significant changes have occurred Confirmed by Karlos Walters ([id number]) on 02/24/2025 2:02:29 PM Referred By: Antony Murillo Confirmed By: Karlos Walters
--- NOTE | 2025-02-24 14:45 | Hospitalist Progress Note ---
Date of Service February 24, 2025 Assessment & Plan (1) NSTEMI (non-ST elevated myocardial infarction): Plan Pt is an 89yoM with PMHx significant for chronic diastolic heart failure (EF 55%, TTE 2019), CAD status post stent, PAF, history VT/VF arrest, mild to moderate AR, COPD, hypertension, hyperlipidemia, BPH, left kidney cancer status post surgery, [place] exposure who presented with chest pain. Myocardial Infarction hx CAD status post stent Ischemic Cardiomyopathy HTN HLD Presenting with chest pain EKG abnormal and concerning for ischemia hs-Trop elevated at 3723.6 to 4894.6 to 3994.2 Echo with noted EF 20-25%, noting akinetic anteroseptal wall motion CTA chest noting "Cardiomegaly, small effusions, bilateral peribronchial thickening and septal thickening" and possible pulmonary edema Aspirin, beta-letty, statin Rx, IV heparin Titrate home BP meds lipid panel, hgba1c in normal limits Cardiology consulted, appreciate recs N.p.o. after midnight in anticipation of diagnostic cardiac catheterization in a.m. Continue to monitor R Renal Lesion left kidney cancer status post surgery R renal lesion noted on CT Renal US ordered to further delineate Needs outpatient followup Other Chronic Medical Problems: Hypertension, elevated secondary to illness chronic diastolic heart failure (EF 55%, TTE 2019), some congestion on imaging CAD status post stent PAF, patient NSR history VT/VF arrest mild to moderate AR COPD, not in acute exacerbation hyperlipidemia, on statin Rx Hyperglycemia ro DM DVT prophylaxis: IV heparin Full code Admission and Anticipated Discharge Date Admission Date: February 23, 2025 Subjective Pt was seen in the AM laying in bed Denied acute concerns, noted no further episodes of chest pain, SOB or palps Review of Systems Review of Systems: All systems reviewed & are unremarkable except as noted in Subjective Physical Exam Physical Exam: General: Alert, oriented. No acute distress HEENT: NC/AT CV: RRR Resp: Breath sounds decreased bilaterally, no increased effort of breathing Abdomen: Soft, nontender, nondistended Extremities: No edema in lower extremities bilaterally. Results & Data Results & Data Vital Signs (Past 12 Hours) Vital Signs Temp Pulse Resp BP Pulse Ox O2 Del Method 02/24/25 11:42 36.6 C 66 18 132/85 95 Room Air 02/24/25 07:31 37.0 C 68 18 138/73 96 Room Air Diagnostic Findings Chest CTA 02/23/25 22:45 Exam(s): CTA CHEST EXAM: CT Chest With Intravenous Contrast CLINICAL HISTORY: Reason for exam: cp. TECHNIQUE: Axial computed tomographic images of the chest with intravenous contrast. CTDI is 33.54 mGy and DLP is 618.61 mGy-cm. Automated exposure control was utilized for the study. A dose lowering technique was utilized adhering to the principles of ALARA. COMPARISON: No relevant prior studies available. FINDINGS: Pulmonary arteries: Unremarkable. No pulmonary embolism. 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 Moderate aortic calcifications. Lungs: Peribronchial thickening and septal thickening bilaterally. Mild basilar atelectasis or airspace disease. No mass. Pleural space: Small bilateral pleural effusions. No pneumothorax. Heart: Cardiomegaly. Marked coronary calcifications. No significant pericardial effusion. No evidence of RV dysfunction. Bones/joints: Degenerative changes of the shoulders, notably on the right. Degenerative changes of the spine. Old sternal fracture deformity. No dislocation. Soft tissues: Unremarkable. Lymph nodes: Unremarkable. No enlarged lymph nodes. Kidneys and ureters: Partially visualized 2.5 cm right renal lesion, not adequately characterized. IMPRESSION: 1. Cardiomegaly, small effusions, bilateral peribronchial thickening and septal thickening. May represent pulmonary edema. 2. 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 3. Partially visualized 2.5 cm right renal lesion, not adequately characterized. Correlate with priors or consider follow-up ultrasound/MR non-emergently. Electronically signed by: Minh Yanes M.D. 02/24/25 04:41 AM
[2025-02-24] MEDS: ASPIRIN 81 MG ECTAB PO SCH (20:47)
[2025-02-25 06:22] LABS: ANTI-Xa, UFH(UnfractionatedHep 0.31 IU/ml (0.3-0.7)
[2025-02-25 06:23] LABS: Hematocrit (blood only) 39.6 % (42.0-52.0); Hemoglobin 13.6 g/dl (14.0-18.0); Mean Corpuscular Hemoglobin 31.4 pg (25.0-34.0); Mean Corpuscular Hgb Conc 34.3 g/dL (32.0-36.0); Mean Corpuscular Volume 91.5 fL (80.0-100.0); Mean Platelet Volume 11.7 fL (9.4-12.4); Platelet Count 143 K/uL (130-400); RDW Coefficient of Variation 13.8 % (11.5-14.5); Red Blood Count 4.33 M/uL (4.70-6.10); White Blood Count 7.62 K/ul (4.8-10.8)
[2025-02-25 06:46] LABS: BUN Creatinine Ratio 18.5 (10-20); Calcium 9.1 mg/dl (8.6-10.3); Creatinine Clr Calc Pharmacy 41.2 ml/min; Magnesium 1.9 mg/dl (1.7-2.4); Potassium 4.1 mmol/L (3.5-5.1)
[2025-02-25 07:00] LABS: Thyroid Stimulating Hormone 1.208 uIu/ml (0.300-4.500)
--- NOTE | 2025-02-25 07:34 | Ultrasound Report ---
EXAM: US renal/blad retro comp CLINICAL HISTORY: f/u renal lesion on CT TECHNIQUE: Static ultrasound images with Grayscale and Doppler of kidneys and urinary bladder were submitted for review. COMPARISON: none FINDINGS: The right kidney is normal in size and echogenicity without evidence of hydronephrosis, nephrolithiasis . A small hypoechoic lesion measuring 1.5x1.3cm seen at upper interpolar cortex. Another iso to hypoechoic lesion measuring 4.2x3.9x3.8cm seen at mid pole with internal vascularity. Right renal vein is patent. The left kidney is normal in size and echogenicity without evidence of hydronephrosis, nephrolithiasis. A hypoechoic exophytic lesion measuring 2.7x2.7x2.3cm at lower pole and another hypoechoic area measuring 2.2x2x1.9cm at mid pole. Left renal vein not visualized. Multiple echogenic foci with twinkle color artifact, likely calculi. Urinary bladder shows multiple large calculi within lumen. Diverticulum along right lateral wall of urinary bladder. IMPRESSION: 1. Few hypoechoic lesions/masses seen in bilateral kidneys as described. Suggested Contrast CT abdomen/ MR abdomen for further evaluation. 2. Vesical calculi. Electronically signed by Geremias Espinal 02-25-2025 07:34 AM
--- NOTE | 2025-02-25 12:24 | Pre Anesthesia Assessment ---
Date of Service February 25, 2025 Pre Sedation Assessment Vital Signs Temp Pulse Pulse Resp BP BP Pulse Ox 02/25/25 11:58 97.5 F L 82 18 107/67 95 02/25/25 08:25 97.9 F 80 17 107/58 L 97 02/25/25 03:11 98.1 F 82 18 111/73 96 02/24/25 23:19 97.9 F 89 19 112/73 96 02/24/25 20:41 98.4 F 71 18 115/66 96 02/24/25 16:44 61 02/24/25 15:40 97.5 F L 65 18 109/53 L 96 O2 Del Method 02/25/25 11:58 Room Air 02/25/25 08:25 Room Air 02/25/25 03:11 Room Air 02/24/25 23:19 Room Air 02/24/25 20:41 Room Air 02/24/25 16:44 02/24/25 15:40 Room Air Cardiovascular + irregularly irregular Respiratory + respiratory effort normal Pre-Sedation Airway Assessment Smoking Status: Never smoker Hx Sleep Apnea: No Hx Difficult Intubation: No Short, Thick Neck: No Thyromental Distance: > or= 3.5 Finger Breadths Oral Cavity: + Dental Abnormalities Mallampati Class: II ASA: ASA3 Procedure Planning Contraindications for Sedation: none Current Medications Reviewed: Yes Notes The planned sedation has been discussed with the patient. Informed Consent was obtained. I have identified the patient, determined the appropriateness of sedation and have assessed the patient immediately prior to the procedure. All medicine(s) and interventions are by my order.
--- NOTE | 2025-02-25 12:35 | Cardiology Progress Note ---
Date of Service February 25, 2025 Assessment & Plan (1) NSTEMI (non-ST elevated myocardial infarction): Plan: 2. Multivessel CAD--widely patent LAD stent, stable mid RCA, distal circumflex disease 3. Ischemic cardiomyopathy--EF20-25%suspected stress-induced cardiomyopathy 4. Paroxysmal AF--new diagnosis, rate controlled 5. Hypertension 6. History of renal cancerrenal mass on CT scan 7. DyslipidemiaLDL 70, atorvastatin 40 No acute or high risk CAD on repeat cardiac cath. Echo images consistent with stress-induced cardiomyopathy No signs of heart failure on exam. Normal LVEDP. Does appear to have new rate controlled AF. Plan on optimizing GDMT for cardiomyopathy, anticoagulation for AF and continuing medical management of residual CAD. Can discontinue heparin. Start Eliquis tonight. Continue aspirin Continue Toprol-XL, lisinopril. Will add Jardiance 10 mg daily Continue current statin From a cardiac standpoint okay with discharge tomorrow if stable overnight. Follow-up with me in 2 to 3 weeks. Repeat echo in 2 to 3 months. Admission and Anticipated Discharge Date Admission Date: February 23, 2025 Subjective Feeling well this morning. No recurrence of prior chest discomfort. Telemetry reviewedrate controlled AF Review of Systems Review of Systems: All systems reviewed & are unremarkable except as noted in HPI & below Physical Exam Physical Exam: General: Comfortable HEENT: Sclerae anicteric Lungs: Clear to auscultation bilaterally Cardiac: Irregular irregular Vascular: 2+ radial Abdomen: Soft, nontender Extremities: Well perfused, no peripheral edema Neuro: Nonfocal Psych: Alert orient x3, normal affect and mood Results & Data Vital Signs (Past 12 Hours) Vital Signs Temp Pulse Resp BP Pulse Ox O2 Del Method 02/25/25 11:58 97.5 F L 82 18 107/67 95 Room Air 02/25/25 08:25 97.9 F 80 17 107/58 L 97 Room Air 02/25/25 03:11 98.1 F 82 18 111/73 96 Room Air PG Care Time/CCT Total # of Minutes Spent Total Time Spent with Patient: Total time spent is greater than 50% in coordination of care (as documented) at patient's floor/unit and/or counseling patient: Coding Level of Care Code 72866 SUB INP/OBS CARE 3/50MIN Diagnoses NSTEMI (non-ST elevated myocardial infarction) I21.4
[2025-02-25] MEDS: niCARdipine 2,000 MCG/20 ML SYR ONE (13:14)
[2025-02-25] MEDS: NITROGLYCERIN/D5W 100MCG/ML 20ML SYR ONE (13:16)
[2025-02-25] MEDS: MIDAZOLAM HCL 1 MG/ML 2ML VIAL ONE (13:18)
[2025-02-25] MEDS: fentaNYL citrate PF 100 MCG/2 ML VIAL ONE (13:18)
[2025-02-25] MEDS: OPTIRAY 350 ONE (13:19)
[2025-02-25] MEDS: IODIXANOL (VISIPAQUE) 320 MG/ML 100ML IV ONE (13:22)
[2025-02-25] MEDS: HEPARIN (PORCINE) 1000 UNIT/ML 10 ML (CATH LAB USE ONLY) ONE (13:22)
--- NOTE | 2025-02-25 13:23 | Post Anesthesia Assessment ---
Date of Service February 25, 2025 Post Sedation Assessment Vital Signs Temp Pulse Pulse Resp BP BP Pulse Ox 02/25/25 12:36 87 18 155/76 H 96 02/25/25 11:58 97.5 F L 82 18 107/67 95 02/25/25 08:25 97.9 F 80 17 107/58 L 97 02/25/25 03:11 98.1 F 82 18 111/73 96 02/24/25 23:19 97.9 F 89 19 112/73 96 02/24/25 20:41 98.4 F 71 18 115/66 96 02/24/25 16:44 61 02/24/25 15:40 97.5 F L 65 18 109/53 L 96 O2 Del Method 02/25/25 12:36 Room Air 02/25/25 11:58 Room Air 02/25/25 08:25 Room Air 02/25/25 03:11 Room Air 02/24/25 23:19 Room Air 02/24/25 20:41 Room Air 02/24/25 16:44 02/24/25 15:40 Room Air Recovery Score Activity: Moves 4 extremities Respiration: Deep Breath/Cough Circulation: +/-20% PreAnes Value Consciousness: Fully Awake Oxygen Saturation: O2 needed for >90% Discharge Sedation Level of Care: Fast Track Phase II Post Sedation Plan On clinical assessment, the patient appears to have tolerated the sedation without complications. Patient is recovering as anticipated. Patient will continue to be monitored by nursing and may be discharged when sedation discharge criteria are met per below protocol. Upon Completions of procedure up to 15 minutes continue every 5 minute vital signs and the P.A.R. score; then discharge to a Phase I or Fast Track to Phase II per the following guidelines: * Discharge Patient to appropriate Phase II area if PAR is 8 or greater or return to pre- procedure baseline. The post - procedure orders will be as directed. * If PAR score is less than 8 or not return to pre-procedure baseline then patient will follow Phase I monitoring till PAR is reached for Phase II. The Phase I may be done in procedure room or may call to secure a Phase I area. * If naloxone or flumazenil are used for reversal, hold in Phase I for continued monitoring from when last reversal dose was given for a minimum of 60 minutes or longer pending the nurse and/or physician discretion of patient condition before discharge to Phase II. Please call the Sedation Physician to re-evaluate and complete post-note for discharge to Phase II area. Do NOT discharge from procedure sedation or Phase 1 until post- sedation evaluation note is complete by procedure /sedation MD Sedation Discharge Instructions to be given to the patient at discharge to home.
--- NOTE | 2025-02-25 13:37 | Cardiac Catheterization ---
[facility] Data: Formulation Scientist Cardiac Status Clinical evaluation leading to the procedure CAD Presenation: Non STEMI Diagnostic Physicians Name: Quincy Coburn MD Closure Device Recommendations: Medical Therapy and/or Counseling Cardiac Cath Procedure Full Procedure Date February 25, 2025 Pre-Procedure Diagnosis Pre-Procedure Diagnosis: Non STEMI, CAD and Cardiomyopathy AUC Score AUC Score: 7 Post-Procedure Diagnosis Post-Procedure Diagnosis: Severe CAD and Normal Intracardiac Pressures Procedure(s) Performed Procedure(s) Performed: Coronary Angiography and Left Heart Cath Rheumatologist Quincy Coburn MD Vacuum System Tester(s) James Estimated Blood Loss Estimated Blood Loss: 15 Medication(s) Medication(s): Fentanyl, Lidocaine 1%, Nicardipine, Nitroglycerin and Versed Summary of Findings Indication: NSTEMI, new severe LV dysfunction EF 20 to 25% with severe apical akinesis Access: 6 Fr slender right radial artery Catheters: Sterling, diagnostic JR4, pigtail Findings: LM -large caliber vessel, no significant disease LAD -moderate caliber vessel, 20% proximal disease, proximal to mid stent widely patent without significant ISR. Mid LAD angulated with myocardial bridging. Distal vessel angulated and wraps around apex. Small jailed diagonal with 40- 50% proximal disease. Circumflex -moderate caliber, 20% proximal to mid, 50-60% disease in small distal vessel, at takeoff of left PLB1. 80% ostial moderate caliber left PLB1 RCA -moderate caliber vessel, dominant, calcified, diffuse mid segment disease up to 80-90% stenosis at takeoff of acute marginal, 30-40% distal disease. RPDA without significant disease. LVEDP -2 Arterial Closure: TR band Summary: 1. Stable chronic multivessel coronary artery disease - Proximal to mid LAD stent widely patent 80-90% mid RCA 50% distal circumflex, 80% ostial left PLB 1 2. Normal intracardiac filling pressure Recommendations: No acute or high risk CAD to explain patient's presenting symptoms and new severe LV dysfunction, apical akinesis. LV dysfunction out of proportion to troponin elevation and and appears most consistent with stress-induced cardiomyopathy Will plan to optimize GDMT for cardiomyopathy Start DOAC for new persistent AF Continued ASCVD risk factor modification Plan to medically manage residual RCA and distal circumflex/PLB disease. Unable to deliver stent on prior attempts at PCI to RCA and today appears stable from 2019. Hemodynamics Rest Ao:: 77/46/60 Final Ao: 111/58/80 LV: 102/2 Recommendations Recommendations: Medical Therapy and/or Counseling Radiation Exposure (mGy) 499 Contrast (mls) 45 Anesthesia [id number] Procedural Complication(s) None Disposition Formulation Scientist Holding/Recovery I attest to the content of the Intraoperative Record and any orders documented therein. Any exceptions are noted below. [facility] Card Cath Procedure Codes Cardiac Catheterization Procedure 1: Cardiovascular Cath Procedures: 62563 Coronaries and LHC (+/-LV) Moderate Sedation Procedure 1: Sedation/Anesthesia: 80392 Mod Sedation by the same physician;Init15 Min Child Age 5 & Up PG Care Time/CCT Total # of Minutes Spent Total Time Spent with Patient: Total time spent is greater than 50% in coordination of care (as documented) at patient's floor/unit and/or counseling patient:
--- OUTSIDE RECORDS SUMMARY | 2025-02-25 15:54 | External Medical Summary | Summary of Care ---
Author Name Unknown Organization [facility] Address [address] [place] [address] Phone [phone] Care Team Providers Care Grading Supervisor Name Role Phone Rylee Farrar PA-C Primary Care Provider + Reason for Visit * Reason Comments Chest Pain * Auth/Cert Specialty Diagnoses / Procedures Referred By Aram cuellar Referred To Contact [facility] [address] [place] [address] Phone: tel:[phone] [facility] Emergency Department ([facility]) [address] [place] [address] Phone: tel: fax: Referral ID Status Reason Start Date Expiration Date Visits Re quested Visits Authorized [id number] Encounter Details Date Type Department Care Team (Late st Contact Info) Description 02/23/2025 2:53 PM EDT - 02/23/2025 6:05 PM EDT Emergency [facility] Emergency Department ([facility]) [address] [place] [id number] Lorraine Rodriguez MD [address] [place] [address] LEROY ASH [facility] Screening for cardiovascular condition; Chest pain Discharge Disposition: Care Home Hospital Allergies Active Allergy Reactions Criticality Noted Date Comments Amoxicillin Nausea/vomiting High 07/24/2014 Sick Ciprofloxacin Nausea/vomiting High 07/24/2014 Sick documented as of this encounter (statuses as of 02/24/2025) Medications ASPIRIN 81 MG PO TABS 81 mg by mouth daily at bedtime Active Cholecalciferol (VITAMIN D) 2000 units Capsule Take 2,000 Units by mouth daily. Active nitroglycerin (NITROSTAT) 0.[address] 1 Tablet under the tongue every 5 minutes as needed for Pain, Chest. Active atorvaSTATin (LIPITOR) 80 MG TabletIndication s:Coronary artery disease involving telida heart, angina presence unspecified, unspecified vessel or lesion type Take 1 Tab by mouth daily. 90 Tab 3 11/12/2019 Active Metoprolol Succinate ER 50 MG Oral Tablet Extended Release 24 Hour (toPROL XL)Indications:H TN, goal below 150/90 Take 1 Tablet by mouth in the morning and 1 Tablet before bedtime. 06/18/2021 Active Fluticasone-Salm eterol 250-50 MCG/ACT Inhalation Aerosol Powder Breath Activated (Advair Diskus) Inhale 1 Puff by mouth in the morning and 1 Puff before bedtime. 06/02/2023 Active Lisinopril 5 MG Oral Tablet (Prinivil) Take 1 Tablet by mouth in the morning. 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 Elevated prostate specific antigen (PSA) 014 documented as of this encounter (statuses as of 02/24/2025) Resolved Problems Problem Noted Date Diagnosed Date Resolved Date Malignant neoplasm of left kidney 10/21/2020 06/02/2023 COPD (chronic obstructive pulmonary disease) 0 08/21/2020 Overview: Per COPD GOLD Classification Kidney disease, chronic, sta ge III (GFR 30-59 ml/min) 02/19/2019 08/21/2020 Overview: Per CKD protocol #1 Kidney lesion 08/21/2014 06/02/2023 Overview (08/21/2014): Right middle pole. Calculus of kidney 08/21/2014 9 Overview (08/21/2014): Historically, the stones have been calcium oxalate. Nodular prostate without urinary obstruction 4 06/02/2023 documented as of this encounter (statuses as of 02/24/2025) Immunizations Immunization Administration Dates Next Due COVID-19 mRNA, LNP-s, No Pre serve, 2-Dose Series (Pfizer) 09/02/2021,12/17/2020,11/26/2020 Pneumococcal Conjugate Vacc, 13 Valent (Prevnar) 09/17/2014 Seasonal Influenza, Quadriva lent, No Preserve, IM 07/10/2018 Seasonal Influenza, Trivalen t, Adjuvanted, 65+ YRS, PF, (Fluad) 08/10/2024,07/16/2022,07/21/2021,2019,07/12/2019 TD - Tetanus/Diptheria (ADULT) 10/10/1997 TDAP, Age 7 and older, IM (Adacel) 12/21/2012 Varicella Zoster Vaccine Mikael lt (Zostavax) 01/03/2023,07/16/2022 documented as of this encounter Social History Tobacco Use Types Packs/Day Years Used Date Smoking Tobacco: Never Smokeless Tobacco: Never Alcohol Use Standard Drinks/Week Comments No 0 (1 standard drink = 0.6 oz pur e alcohol) very rare AUDIT-C Answer Date Recorded Frequency of Alcohol Consumption Never 10/02/2018 Average Number of Drinks Not on file 018 Frequency of Binge Drinking Not on file 09/10 PHQ-2 Answer Date Recorded PHQ-2 Score 0 08/14/2020 Hunger Vital Sign Answer Date Recorded Worried About Running Out of Food in the Last Ye ar Never true 08/14/2020 Ran Out of Food in the Last Year Never true 08/14/2020 Sex and Gender Information Value Date Recorded Sex Assigned at Not on file Legal Sex Male 11:20 AM EDT Gender Identity Not on file Sexual Orientation Not on file documented as of this encounter Last Filed Vital Signs Vital Sign Reading Time Taken Comments Blood Pressure 142/98 02/23/2025 5:45 PM EDT Pulse 60 02/23/2025 5:45 PM EDT Temperature 36.7 °C (98.1 °F) 02/23/2025 3:00 PM ED T Respiratory Rate 18 02/23/2025 5:45 PM EDT Oxygen Saturation 96% 02/23/2025 5:45 PM EDT Inhaled Oxygen Concentration - - Weight 65.2 kg (143 lb 11.8 oz) 02/23/2025 3:00 PM EDT Height 177.8 cm (5' 10") 02/23/2025 3:00 PM EDT Body Mass Index 20.62 02/23/2025 3:00 PM EDT documented in this encounter ED Notes * Alysha Monroy RN - 02/23/2025 3:03 PM EDT Patient arrived via EMS after having CP after eating lunch. Patient had pasta with red sauce for lunch and started to have CP after eating. Patient has History of STEMI with stent placement. Patient took 1 nitro prior to EMS arrival without relief. Patient was given 1 Nitro and 324 ASA enroute to ER. 18G L Arm. documented in this encounter Miscellaneous Notes * ED Warehouse Consultant Note - Alysha Monroy RN - 02/23/2025 5:55 PM EDT [facility] documented in this encounter Plan of Treatment Scheduled Orders Name Type Priority Associated Diagnoses Orde r Schedule EKG EKG STAT Screening for cardiovascular condition Perform Now for 1 Occurrences starting 02/23/2025 until 02/23/2025 EKG EKG STAT Chest pain Perform Now for 1 Occurrences starting 02/23/2025 until 02/23/2025 Health Maintenance Due Date Last Done Comments Depression Screening 1947 Albumin/Creatinine Ratio 02/07/1954 Alpha-1 Antitrypsin 02/07/1954 CKD PHOS USE SMARTSET 77788 02[birth year]07/1953 Adult Wellness Visit 02/07/2002 Pneumococcal Vaccine: 50+ Years (2 of 2 - PPSV23) 11/12/2014 09/17/2014 *COPD SEVERITY VERIFIED BY PFT 11/15/2019 DTap/Tdap Vaccines (2 - Td or Tdap) 12/21/2022 12/21/2012, 10/10/1997 Zoster Vaccines (2 of 3) 02/28/2023 01/03/2023, 04/2022 COVID-19 Vaccine ( - season) 2024 09/02/2021, 12/17/2020, 11/26/2020 CKD HGB USE SMARTSET 85696 02/23/202602/23, 02/23/2025, 01/03/2023, Additional history exists O2 ASSESSMENT COMPLETED IN PAST YEAR FOR COPD 02/23/2026 02/23/2025 EKG Completed 10/04/2018, 10/02/2018 Influenza Vaccine (FLU shot) Completed 10/2023, 07/16/2022, 07/21/2021, Additional history exists HPV (Gardasil) Vaccine Aged Out No lo nger eligible based on patient's age to complete this topic Hepatitis B Vaccine Aged Out No longe r eligible based on patient's age to complete this topic MENINGOCOCCAL (MENACTRA/MENVEO) Aged Out No longer eligible based on patient's age to complete this topic Meningitis B Vaccine (Bexsero/Trumemba) Aged Out No longer eligible based on patient's age to complete this topic documented as of this encounter Medical Devices Not on filedocumented as of this encounter Procedures Procedure Name Priority Date/Time Associated Diagnosis Comments HEPARIN, UNFRACTIONATED STAT 02/24/20 5:05 PM EDT PT INR STAT 02/23/2025 5:05 PM EDT APTT STAT 02/23/2025 5:05 PM EDT CBC STAT 02/23/2025 5:05 PM EDT TROPONIN T, HIGH SENSITIVITY STAT 02/23/2025 3:53 PM EDT XR CHEST 1 VIEW STAT 02/23/2025 3:17 PM EDT DIFFERENTIAL, AUTOMATED STAT 02/24/20 3:15 PM EDT TROPONIN T, HIGH SENSITIVITY STAT 02/23/2025 3:15 PM EDT BNP (NT-PROBNP) STAT 02/23/2025 3:15 PM EDT COMPREHENSIVE METABOLIC PANEL STAT 02/23/2025 3:15 PM EDT CBC STAT 02/23/2025 3:15 PM EDT PT INR STAT 02/23/2025 3:15 PM EDT LIPASE STAT 02/23/2025 3:15 PM EDT CBC STAT 02/23/2025 3:15 PM EDT documented in this encounter Results * HEPARIN, UNFRACTIONATED (02/23/2025 5:05 PM EDT) Heparin, Unfractionated <0.10 <0.10 IU/mL 02/23/2025 5:33 PM EDT [facility] POCT Comment: Anti-Xa Therapeutic Ranges Neurology/Stroke: 0.15 to 0.35 IU/mL Cardiology/Acute Coronory [...] icterus. Consult laboratory medicine with any questions. Blood Venous blood specimen / Unknown Venipuncture / Unknown 02/23/2025 5:05 PM EDT 02/23/2025 5:08 PM EDT us Lorraine Rodriguez MD LAB BLOOD ORDERABLES Fin al Result [facility] POCT [address] [place] [address] * CBC (02/23/2025 5:05 PM EDT) WBC 10.16 4.00 - 10.80 K/uL 02/23/2025 5:12 PM EDT [facility] POCT RBC 4.54 4.50 - 5.25 M/uL 02/23/2025 5:12 PM EDT [facility] POCT HGB 14.3 14.0 - 16.8 g/dL 02/23/2025 5:12 PM EDT [facility] POCT HCT 42.3 40.0 - 48.4 % 02/23/2025 5:12 PM EDT [facility] POCT MCV 93.2 82.0 - 99.5 fL 02/23/2025 5:12 PM EDT [facility] POCT MCH 31.5 27.0 - 34.0 pg 02/23/2025 5:12 PM EDT [facility] POCT MCHC 33.8 32.0 - 36.0 g/dL 02/23/2025 5:12 PM EDT [facility] POCT RDW 13.9 11.5 - 15.5 % 02/23/2025 5:12 PM EDT [facility] POCT PLT 171 140 - 400 K/uL 02/23/2025 5:12 PM EDT [facility] PO[facility] MPV 10.6 6.6 - 11.1 fL 02/23/2025 5:12 PM EDT [facility] POCT Blood Venous blood specimen / Unknown Venipuncture / Unknown 02/23/2025 5:05 PM EDT 02/23/2025 5:08 PM EDT us Lorraine Rodriguez MD LAB BLOOD ORDERABLES Fin al Result Performing Organization Address City/[facility]/ZIP Co de Phone Number [facility] POCT [address] [place] [phone] * APTT (02/23/2025 5:05 PM EDT) aPTT 32 21 - 38 seconds 02/23/2025 5:31 PM EDT [facility] POCT Blood Venous blood specimen / Unknown Venipuncture / Unknown 02/23/2025 5:05 PM EDT 02/23/2025 5:08 PM EDT Narrative [facility] POCT - 02/23/2025 5:31 PM EDT Anticoagulation may affect testing. Refer to [facility] [employer] [facility] Test Catalog for a list of effects. us Lorraine Rodriguez MD LAB BLOOD ORDERABLES Fin al Result [facility] POCT [address] [place] [phone] * PT INR (02/23/2025 5:05 PM EDT) Prothrombin Time 13.9 11.6 - 15.2 seconds 02/23/2025 5:30 PM EDT [facility] POCT INR 1.1 0.8 - 1.2 02/23/2025 5:30 PM EDT [facility] POCT Blood Venous blood specimen / Unknown Venipuncture / Unknown 02/23/2025 5:05 PM EDT 02/23/2025 5:08 PM EDT Narrative [facility] POCT - 02/23/2025 5:30 PM EDT Warfarin Therapy INR: 2.0-3.0 conventional anticoagulation INR: 2.5-3.5 high intensity anticoagulation us Lorraine Rodriguez MD LAB BLOOD ORDERABLES Fin al Result Performing Organization Address City/[facility] Co de Phone Number [facility] POCT [address] [place] [phone] * (ABNORMAL) TROPONIN T, HIGH SENSITIVITY (02/23/2025 3:53 PM EDT) Troponin T, High Sensitivity 178(HH) <=22 ng/L 02/23/2025 4:33 PM EDT [facility] POCT Blood Venous blood specimen / Unknown Venipuncture / Unknown 02/23/2025 3:53 PM EDT 02/23/2025 3:57 PM EDT us Lorraine Rodriguez MD LAB BLOOD ORDERABLES Fin al Result Performing Organization Address [facility] Co de Phone Number [facility] POCT [address] [place] [phone] * XR CHEST 1 VIEW (02/23/2025 3:17 PM EDT) Anatomical Region Laterality Modality Chest Computed Radiogr aphy 02/23/2025 3:18 PM EDT Impressions 02/23/2025 4:21 PM EDT IMPRESSION: Mild interstitial opacities possibly interstitial edema. THIS DOCUMENT HAS BEEN ELECTRONICALLY SIGNED BY LORRAINE AHMADI MD Narrative 02/23/2025 4:21 PM EDT PROCEDURE INFORMATION: Exam: XR Chest Exam date and time: 02/23/2025 3:18 PM Age: 89 years old Clinical indication: Pain; Chest pressure; Additional info: Chest pain TECHNIQUE: Imaging protocol: Radiologic exam of the chest. Views: 1 view. COMPARISON: DX XR CHEST 1 VIEW 10/04/2018 5:29 AM FINDINGS: Lungs: Mild interstitial opacities are seen in the lower lungs, left slightly greater than right. Interstitial edema could have this appearance. Pleural spaces: Unremarkable. No pleural effusion. No pneumothorax. Heart/Mediastinum: Unremarkable. No cardiomegaly. Bones/joints: Unremarkable. Procedure Note Lorraine Ahmadi MD - 02/23/2025 PROCEDURE INFORMATION: Exam: XR Chest Exam date and time: 02/23/2025 3:18 PM Age: 89 years old Clinical indication: Pain; Chest pressure; Additional info: Chest pain TECHNIQUE: Imaging protocol: Radiologic exam of the chest. Views: 1 view. COMPARISON: DX XR CHEST 1 VIEW 10/04/2018 5:29 AM FINDINGS: Lungs: Mild interstitial opacities are seen in the lower lungs, leftslightly greater than right. Interstitial edema could have this appearance. Pleural spaces: Unremarkable. No pleural effusion. No pneumothorax. Heart/Mediastinum: Unremarkable. No cardiomegaly. Bones/joints: Unremarkable. IMPRESSION IMPRESSION: Mild interstitial opacities possibly interstitial edema. THIS DOCUMENT HAS BEEN ELECTRONICALLY SIGNED BY LORRAINE AHMADI MD us Lorraine Rodriguez MD RADIOLOGY ([facility]) Final Result * (ABNORMAL) DIFFERENTIAL, AUTOMATED (02/23/2025 3:15 PM EDT) WBC 7.28 4.00 - 10.80 K/uL 02/23/2025 3:21 PM EDT [facility] POCT Neutrophils % 80.7(H) 40.0 - 75.0 % 02/23/2025 3:21 PM EDT [facility] POCT Lymphocytes % 9.6(L) 18.0 - 42.0 % 02/23/2025 3:21 PM EDT [facility] POCT Monocytes % 6.7 1.0 - 11.0 % 02/23/2025 3:21 PM EDT [facility] POCT Eosinophils % 2.9 0.0 - 6.0 % 02/23/2025 3:21 PM EDT [facility] POCT Basophils % 0.1 0.0 - 2.0 % 02/23/2025 3:21 PM EDT [facility] POCT Absolute Neutrophils 5.87 1.80 - 7.70 K/uL 02/23/2025 3:21 PM EDT [facility] POCT Absolute Lymphocytes 0.70(L) 1.00 - 4.80 K/ul 02/23/2025 3:21 PM EDT [facility] POCT Absolute Monocytes 0.49 0.00 - 1.10 K/uL 02/23/2025 3:21 PM EDT [facility] POCT Absolute Eosinophils 0.21 0.00 - 0.70 K/uL 02/23/2025 3:21 PM EDT [facility] POCT Absolute Basophils 0.01 0.00 - 0.20 K/uL 02/23/2025 3:21 PM EDT [facility] POCT Blood Venous blood specimen / Unknown Venipuncture / Unknown 02/23/2025 3:15 PM EDT 02/23/2025 3:17 PM EDT us Dora Carlton PA-C LAB BLOOD ORDERABLES Final Re sult [facility] [address] [place] [phone] * CBC (02/23/2025 3:15 PM EDT) WBC 7.28 4.00 - 10.80 K/uL 02/23/2025 3:21 PM EDT [facility] POCT RBC 4.51 4.50 - 5.25 M/uL 02/23/2025 3:21 PM EDT [facility] POCT HGB 14.1 14.0 - 16.8 g/dL 02/23/2025 3:21 PM EDT [facility] POCT HCT 42.5 40.0 - 48.4 % 02/23/2025 3:21 PM EDT [facility] POCT MCV 94.2 82.0 - 99.5 fL 02/23/2025 3:21 PM EDT [facility] POCT MCH 31.3 27.0 - 34.0 pg 02/23/2025 3:21 PM EDT [facility] POCT MCHC 33.2 32.0 - 36.0 g/dL 02/23/2025 3:21 PM EDT [facility] POCT RDW 13.9 11.5 - 15.5 % 02/23/2025 3:21 PM EDT [facility] POCT PLT 159 140 - 400 K/uL 02/23/2025 3:21 PM EDT [facility] POCT MPV 10.6 6.6 - 11.1 fL 02/23/2025 3:21 PM EDT [facility] POCT Blood Venous blood specimen / Unknown Venipuncture / Unknown 02/23/2025 3:15 PM EDT 02/23/2025 3:17 PM EDT Dora Carlton PA-C LAB BLOOD ORDERABLES Final Re sult Performing Organization Address [facility] Co de Phone Number [facility] [address]CT [address] [place] [phone] * PT INR (02/23/2025 3:15 PM EDT) [facility] Signature Prothrombin Time 13.8 11.6 - 15.2 seconds 02/23/2025 3:30 PM EDT [facility] POCT INR 1.1 0.8 - 1.2 02/23/2025 3:30 PM EDT [facility] POCT Blood Venous blood specimen / Unknown Venipuncture / Unknown 02/23/2025 3:15 PM EDT 02/23/2025 3:17 PM EDT Narrative [facility] POCT - 02/23/2025 3:30 PM EDT Warfarin Therapy INR: 2.0-3.0 conventional anticoagulation INR: 2.5-3.5 high intensity anticoagulation Dora Carlton PA-C LAB BLOOD ORDERABLES Final Re sult Performing Organization Address City/[facility]/ZIP Co de Phone Number [facility] [address] [place] [address] * (ABNORMAL) LIPASE (02/23/2025 3:15 PM EDT) [facility] Lipase 12(L) 13 - 60 U/L 02/23/2025 3:59 PM EDT [facility] POCT Blood Venous blood specimen / Unknown Venipuncture / Unknown 02/23/2025 3:15 PM EDT 02/23/2025 3:17 PM EDT Dora Carlton PA-C LAB BLOOD ORDERABLES Final Re sult Performing Organization Address [facility]/ZIP Co de Phone Number [facility] POCT [address] [place] [phone] * (ABNORMAL) TROPONIN T, HIGH SENSITIVITY (02/23/2025 3:15 PM EDT) [facility] Troponin T, High Sensitivity 127(HH) <=22 ng/L 02/23/2025 3:43 PM EDT [facility] POCT Blood Venous blood specimen / Unknown Venipuncture / Unknown 02/23/2025 3:15 PM EDT 02/23/2025 3:17 PM EDT Dora Carlton PA-C LAB BLOOD ORDERABLES Final Re sult Performing Organization Address City/[facility]/ZIP Co de Phone Number [facility] [address]CT [address] [place] [phone] * (ABNORMAL) BNP, NT-PRO (02/23/2025 3:15 PM EDT) [facility] BNP, NT-Pro 549(H) <300 pg/mL 02/23/2025 3:45 PM EDT [facility] POCT Blood Venous blood specimen / Unknown Venipuncture / Unknown 02/23/2025 3:15 PM EDT 02/23/2025 3:17 PM EDT Narrative [facility] POCT - 02/23/2025 3:45 PM EDT Exclude Heart Failure: <300 pg/mL Diagnose Heart Failure: Age <50 yr: >450 pg/mL 50-75 yr: >900 pg/mL >75 yr: >1800 pg/mL GFR is 30-59 mL/min: >1200 pg/mL or Age-adjusted values GFR <30 mL/min: do not use, not reliable Prognostic threshold: 1000 pg/mL us Dora Carlton PA-C LAB BLOOD ORDERABLES Final Re sult [facility] [address]CT [address] [place] [phone] * (ABNORMAL) COMPREHENSIVE METABOLIC PANEL (02/23/2025 3:15 PM EDT) BUN 23(H) 6 - 20 mg/dL 02/23/2025 4:21 PM EDT [facility] POCT CREATININE 1.0 0.6 - 1.2 mg/dL 02/23/2025 4:21 PM EDT [facility] POCT EGFR 70 >=60 mL/min 02/23/2025 4:21 PM EDT [facility] POCT Comment:eGFR is calculated b ased on the CKD-EPI 2020 equation. SODIUM 138 135 - 146 mmol/L 02/23/2025 4:21 PM EDT [facility] POCT POTASSIUM 4.0 3.5 - 5.1 mmol/L 02/23/2025 4:21 PM EDT [facility] PO[facility] CHLORIDE 105 98 - 107 mmol/L 02/23/2025 4:21 PM EDT [facility] PO[facility] CO2 22 22 - 32 mmol/L 02/23/2025 4:21 PM EDT [facility] PO[facility] ANION GAP 11 7 - 15 mmol/L 02/23/2025 4:21 PM EDT [facility] PO[facility] GLUCOSE 177(H) 70 - 120 mg/dL 02/23/2025 4:21 PM EDT [facility] POCT Albumin 3.3(L) 3.8 - 5.0 g/dL 02/23/2025 4:21 PM EDT [facility] POCT AST 20 10 - 50 U/L 02/23/2025 4:21 PM EDT [facility] POCT Alkaline Phosphatase 88 35 - 130 U/L 02/23/2025 4:21 PM EDT [facility] POCT Bilirubin, Total 0.4 <=1.2 mg/dL 02/23/2025 4:21 PM EDT [facility] POCT CALCIUM 9.1 8.4 - 10.2 mg/dL 02/23/2025 4:21 PM EDT [facility] POCT Protein 5.8(L) 6.0 - 8.3 g/dL 02/23/2025 4:21 PM EDT [facility] POCT ALT 13 10 - 50 U/L 02/23/2025 4:21 PM EDT [facility] POCT Blood Venous blood specimen / Unknown Venipuncture / Unknown 02/23/2025 3:15 PM EDT 02/23/2025 3:17 PM EDT Dora Carlton PA-C LAB BLOOD ORDERABLES Final Re sult [facility] [address] [address] [place] [phone] documented in this encounter Visit Diagnoses Diagnosis Screening for cardiovascular condition Screening for other and unspecified cardiovascular conditions Chest pain Chest pain, unspecified documented in this encounter Administered Medications Inactive Administered Medications - up to 3 most recent administrations Medication Order MAR Action Action Date Dose Rate Site hEParin 1000 UNIT/ML inj 1,000 Units 1,000 Units (rounded from 978 Units = 15 Units/kg 65.2 kg), IV Push, PRN Other, If most recent Heparin Assay result is between 0.21 and 0.29 units/mL, Starting on 02/23/25 at 1641, Until 02/23/25 at 2207, Repeat Heparin Assay 6 hours after bolus is administered. hEParin 1000 UNIT/ML inj 2,000 Units 2,000 Units (rounded from 1,956 Units = 30 Units/kg 65.2 kg), IV Push, PRN Other, If most recent Heparin Assay result is less than or equal to 0.2 units/mL, Starting on 02/23/25 at 1641, Until 02/23/25 at 2207, Repeat Heparin Assay 6 hours after bolus is administered. hEParin 1000 UNIT/ML inj 3,900 Units 3,900 Units (rounded from 3,912 Units = 60 Units/kg 65.2 kg), IV Push, ONCE, On 02/23/25 at 1715, For 1 dose, Maximum 4,000 units for Acute Coronary Syndrome Given 02/23/2025 5:25 PM EDT 3,900 Units hEParin 25,000 units in 250 mL (Xa-Cardiac) infusion Intravenous, at 0-19.56 mL/hr, Start heparin as soon as baseline labs are drawn. Please select this medication from the infusion pump library! Concentration: 100 units/mL Expires 96 hours after spiking on (date) at (hour) , TITRATE, Starting on 02/23/25 at 1715, Until 02/23/25 at 2207 New Bag 02/23/2025 5:28 PM EDT 12 Units/kg/hr 7.82 mL/hr Morphine Sulfate (PF) inj 4 mg 4 mg, Intravenous, ONCE, On 02/23/25 at 1730, For 1 dose Given 02/23/2025 5:14 PM EDT 4 mg documented in this encounter Active and Recently Administered Medications Times are shown in EDT. Scheduled Medication Order 02/21/2025 02/22/2025 02/23/2025 hEParin 1000 UNIT/ML inj 3,900 Units (COMPLETED) 3,900 Units (rounded from 3,912 Units = 60 Units/kg 65.2 kg), IV Push, ONCE, On 02/23/25 at 1715, For 1 dose, Maximum 4,000 units for Acute Coronary Syndrome 1725 (Given - Provid er: Alysha Monroy RN) Morphine Sulfate (PF) inj 4 mg (COMPLETED) 4 mg, Intravenous, ONCE, On 02/23/25 at 1730, For 1 dose 1714 (Given - Provid er: Alysha Monroy RN) Continuous Medication Order 02/21/2025 02/22/2025 02/23/2025 hEParin 25,000 units in 250 mL (Xa-Cardiac) infusion Intravenous, at 0-19.56 mL/hr, Start heparin as soon as baseline labs are drawn. Please select this medication from the infusion pump library! Concentration: 100 units/mL Expires 96 hours after spiking on (date) at (hour) , TITRATE, Starting on 02/23/25 at 1715, Until 02/23/25 at 2207 1728 (New Bag - Prov ider: Alysha Monroy RN)2206 (Due: Stopped)2207 (Due: Stopped) PRN Medication Order 02/21/2025 02/22/2025 02/23/2025 hEParin 1000 UNIT/ML inj 1,000 Units 1,000 Units (rounded from 978 Units = 15 Units/kg 65.2 kg), IV Push, PRN Other, If most recent Heparin Assay result is between 0.21 and 0.29 units/mL, Starting on 02/23/25 at 1641, Until 02/23/25 at 2207, Repeat Heparin Assay 6 hours after bolus is administered. hEParin 1000 UNIT/ML inj 2,000 Units 2,000 Units (rounded from 1,956 Units = 30 Units/kg 65.2 kg), IV Push, PRN Other, If most recent Heparin Assay result is less than or equal to 0.2 units/mL, Starting on 02/23/25 at 1641, Until 02/23/25 at 2207, Repeat Heparin Assay 6 hours after bolus is administered. documented in this encounter Care Teams Grading Supervisor Relationship Specialty Start Date End Date Rylee Farrar PA-C [address] [place] [address] [place] [address] PCP - General Physician Grocery Associate 06/02/23 documented as of this encounter
--- NOTE | 2025-02-25 15:56 | Electrocardiogram Report ---
Test Reason : Blood Pressure : */* mmHG Vent. Rate : 81 BPM Atrial Rate : * BPM P-R Int : * ms QRS Dur : 78 ms QT Int : 464 ms P-R-T Axes : * -62 233 degrees QTcB Int : 539 ms Atrial fibrillation Left axis deviation Inferior infarct Marked T wave abnormality consider anterolateral ischemia Prolonged QT Abnormal ECG When compared with ECG of 23-Feb-2025 22:08, Significant changes have occurred Confirmed by Karlos Walters ([id number]) on 02/25/2025 3:56:00 PM Referred By: Antony Murillo Confirmed By: Karlos Walters
--- NOTE | 2025-02-25 16:57 | Hospitalist Progress Note ---
Date of Service February 25, 2025 Assessment & Plan (1) NSTEMI (non-ST elevated myocardial infarction): Plan Pt is an 89yoM with PMHx significant for chronic diastolic heart failure (EF 55%, TTE 2019), CAD status post stent, PAF, history VT/VF arrest, mild to moderate AR, COPD, hypertension, hyperlipidemia, BPH, left kidney cancer status post surgery, Agent [place] exposure who presented with chest pain. Myocardial Infarction hx CAD status post stent Ischemic Cardiomyopathy HTN HLD New Onset atrial fibrillation Presenting with chest pain EKG abnormal and concerning for ischemia hs-Trop elevated at 3723.6 to 4894.6 to 3994.2 Echo with noted EF 20-25%, noting akinetic anteroseptal wall motion CTA chest noting "Cardiomegaly, small effusions, bilateral peribronchial thickening and septal thickening" and possible pulmonary edema Aspirin, beta-letty, statin Rx, IV heparin Titrate home BP meds lipid panel, hgba1c in normal limits Cardiology consulted, appreciate recs -s/p cardiac cath on 02/25 with noted findings and recommendations from Launch Check Out Dr. Quincy Coburn: "...Stable chronic multivessel coronary artery disease - Proximal to mid LAD stent widely patent 80-90% mid RCA 50% distal circumflex, 80% ostial left PLB 1 2. Normal intracardiac filling pressure Recommendations: -No acute or high risk CAD to explain patient's presenting symptoms and new severe LV dysfunction, apical akinesis. -LV dysfunction out of proportion to troponin elevation and and appears most consistent with stress-induced cardiomyopathy -Will plan to optimize GDMT for cardiomyopathy -Start DOAC for new persistent AF -Continued ASCVD risk factor modification Plan to medically manage residual RCA and distal circumflex/PLB disease. Unable to deliver stent on prior attempts at PCI to RCA and today appears stable from 2019..." 02/25/25 -Pt with new onset a fib- rate controlled, continue with Toprol and Eliquis Continue with Jardiance added, continue lisinopril Continue to monitor- anticipate discharge in the AM R Renal Lesion left kidney cancer status post surgery R renal lesion noted on CT Renal US ordered, noting bilateral renal lesions. Recommending CT or MR of the abdomen MR abdomen ordered will likely need outpatient followup Other Chronic Medical Problems: Hypertension, elevated secondary to illness chronic diastolic heart failure (EF 55%, TTE 2019), some congestion on imaging CAD status post stent PAF, patient NSR history VT/VF arrest mild to moderate AR COPD, not in acute exacerbation hyperlipidemia, on statin Rx Hyperglycemia ro DM DVT prophylaxis: IV heparin to switch to eliquis Full code Admission and Anticipated Discharge Date Admission Date: February 23, 2025 Subjective Pt was seen in the AM before his cath Laying in bed, denied acute concerns No chest pain, SOB, palps Review of Systems Review of Systems: All systems reviewed & are unremarkable except as noted in Subjective Physical Exam Physical Exam: General: Alert, oriented. No acute distress HEENT: NC/AT CV: RRR Resp: Breath sounds decreased bilaterally, no increased effort of breathing Abdomen: Soft, nontender, nondistended Extremities: No edema in lower extremities bilaterally. Results & Data Results & Data Vital Signs (Past 12 Hours) Vital Signs Temp Pulse Resp BP Pulse Ox O2 Del Method 02/25/25 12:36 87 18 155/76 H 96 Room Air 02/25/25 11:58 36.4 C L 82 18 107/67 95 Room Air 02/25/25 08:25 36.6 C 80 17 107/58 L 97 Room Air 02/25/25 03:11 36.7 C 82 18 111/73 96 Room Air
[2025-02-25 20:12] VITALS: RESP 18
[2025-02-25] MEDS: APIXABAN 5 MG TABLET PO SCH (20:47)
[2025-02-26 06:54] LABS: Hematocrit (blood only) 37.5 % (42.0-52.0); Hemoglobin 12.8 g/dl (14.0-18.0); Mean Corpuscular Hemoglobin 31.2 pg (25.0-34.0); Mean Corpuscular Hgb Conc 34.1 g/dL (32.0-36.0); Mean Corpuscular Volume 91.5 fL (80.0-100.0); Mean Platelet Volume 11.4 fL (9.4-12.4); Platelet Count 126 K/uL (130-400); RDW Coefficient of Variation 13.9 % (11.5-14.5); RDW Standard Deviation 46.9 fL (36.4-46.3); White Blood Count 7.19 K/ul (4.8-10.8)
[2025-02-26 07:13] LABS: BUN Creatinine Ratio 20.1 (10-20); Creatinine Clr Calc Pharmacy 28.7 ml/min; Phosphorus 3.6 mg/dl (2.5-4.9); Potassium 4.2 mmol/L (3.5-5.1)
[2025-02-26] MEDS: EMPAGLIFLOZIN 10 MG TAB PO SCH (08:25)
[2025-02-26 11:49] VITALS: TEMP 97.7; O2SAT 95
--- NOTE | 2025-02-26 13:07 | Electrocardiogram Report ---
Test Reason : Blood Pressure : */* mmHG Vent. Rate : 64 BPM Atrial Rate : 64 BPM P-R Int : 198 ms QRS Dur : 126 ms QT Int : 494 ms P-R-T Axes : 47 -62 137 degrees QTcB Int : 509 ms Sinus rhythm with frequent Premature ventricular complexes in a pattern of bigeminy Left axis deviation Right bundle branch block Inferior infarct (cited on or before 23-Feb-2025) Abnormal ECG When compared with ECG of 23-Feb-2025 22:08, Premature ventricular complexes are now Present IL interval has decreased Right bundle branch block is now Present Questionable change in initial forces of Septal leads Confirmed by Karlos Walters ([id number]) on 02/26/2025 1:07:26 PM Referred By: Antony Murillo Confirmed By: Karlos Walters
--- NOTE | 2025-02-26 15:03 | Discharge Summary ---
Discharge Summary Date of Service February 26, 2025 Principal Dx & Hospital Course #1 = Principal Diagnosis (1) NSTEMI (non-ST elevated myocardial infarction): (2) Ischemic cardiomyopathy: Plan Pt is an 89yoM with PMHx significant for chronic diastolic heart failure (EF 55%, TTE 2019), CAD status post stent, PAF, history VT/VF arrest, mild to moderate AR, COPD, hypertension, hyperlipidemia, BPH, left kidney cancer status post surgery, Agent [place] exposure who presented with chest pain. NSTEMI hx CAD status post stent Ischemic Cardiomyopathy HTN HLD Atrial fibrillation Presenting with chest pain EKG abnormal and concerning for ischemia hs-Trop elevated at 3723.6 to 4894.6 to 3994.2 Echo with noted EF 20-25%, noting akinetic anteroseptal wall motion CTA chest noting "Cardiomegaly, small effusions, bilateral peribronchial thickening and septal thickening" and possible pulmonary edema Aspirin, beta-letty, statin Rx, IV heparin Titrate home BP meds lipid panel, hgba1c in normal limits Cardiology consulted, appreciate recs -s/p cardiac cath on 02/25 with noted findings and recommendations from Director Of Culture Dr. Quincy Coburn: "...Stable chronic multivessel coronary artery disease - Proximal to mid LAD stent widely patent 80-90% mid RCA 50% distal circumflex, 80% ostial left PLB 1 2. Normal intracardiac filling pressure Recommendations: -No acute or high risk CAD to explain patient's presenting symptoms and new severe LV dysfunction, apical akinesis. -LV dysfunction out of proportion to troponin elevation and and appears most consistent with stress-induced cardiomyopathy -Will plan to optimize GDMT for cardiomyopathy -Start DOAC for new persistent AF- (Cr on discharge 1.5 and age >80, discharged with Eliquis 2.5mg BID) -Continued ASCVD risk factor modification Plan to medically manage residual RCA and distal circumflex/PLB disease. Unable to deliver stent on prior attempts at PCI to RCA and today appears stable from 2019..." 02/25/25 -Pt with new onset a fib- rate controlled, continue with Toprol and Eliquis On the day of discharge Cr elevated to 1.5 in the setting of contrast administration the day prior. Case discussed with Dr Quincy Coburn via tiger text. Pt anxious for discharge. Dr Coburn advised holding the Jardiance and lisinopril on discharge, advised pt to increase po fluid intake, repeat BMP in 3 days, follow up with cardiology in 1-2 weeks. R Renal Lesion left kidney cancer status post surgery R renal lesion noted on CT Renal US ordered, noting bilateral renal lesions. Recommending CT or MR of the abdomen MR abdomen ordered- pt refused/declined Further discussion with pt- he states he has known about this, never had followup. States he does not want further followup. Pt aware of risks such as complications, metastasis and if lesions are malignant and declined further workup or followup. Acute Kidney Injury Cr elevated at 1.5 on day of discharge s/p Cath with contrast Pt anxious for discharge, known EF 20% Hold home lisinopril and other nephrotoxic meds on discharge Repeat BMP in 3 days after discharge with close PCP followup Other Chronic Medical Problems: Hypertension, elevated secondary to illness chronic diastolic heart failure (EF 55%, TTE 2019), some congestion on imaging CAD status post stent PAF, patient NSR history VT/VF arrest mild to moderate AR COPD, not in acute exacerbation hyperlipidemia, on statin Rx Hyperglycemia ro DM DVT prophylaxis: IV heparin to switch to eliquis Full code Notes For Next Care Provider Cr 1.5 on discharge. Pt anxious for discharge- needs repeat BMP in 3 days with close PCP followup Pt encouraged to push fluids- pcp followup for continued kidney function monitoring Medication Changes From Visit Per Cardiology: -hold lisinopril and jardiance Admission HPI Per Admitting Provider History obtained from patient, family, and records. Medical history significant for chronic diastolic heart failure (EF 55%, TTE 2019), CAD status post stent, PAF, history VT/VF arrest, mild to moderate AR, COPD, hypertension, hyperlipidemia, BPH, left kidney cancer status post surgery, Agent [place] exposure. Last confinement 2019 for atypical chest pain. Patient substernal heaviness across his chest yesterday after dinner. Denies SOB or abdominal pain. No cough symptoms. Compliant with home medications. No unusual stress at home. No relief with nitroglycerin intake. EMS called the patient's home. Patient given aspirin and nitroglycerin. Discomfort unrrelieved. Patient brought to [facility] ER. SBP 180s upon arrival at the ER. Chest pain relieved by morphine administration. ST segment abnormalities on EKG. Troponin noted to be 178. BNP noted to be 549. IV heparin initiated at the ER. Patient transferred to [facility] to be evaluated by patient's [facility] roller shop utility worker. Patient complained of chest pain upon arrival at [facility] PCU unit. Chest pain improving after oxycodone administration. Medical History as above Surgical History : Kidney surgery, prostate biopsy Family History : DM Personal/Social history : Non-smoker, rare EtOH intake, retired store employee Admission Exam Per Admitting Provider GENERAL: pleasant, slightly anxious, no respiratory distress SKIN: Normal color, warm HEENT: Alopecia, pink palpebral conjunctivae, no ptosis, dry buccal mucosa NECK : Supple, no tenderness CHEST : CTA, no tenderness HEART : RRR, no obvious murmurs ABDOMEN: no distention, nontender EXTREMITIES : No LE swelling/tenderness, palpable pulses, no other conspicuous deformities noted NEUROLOGIC : Coherent, no facial asymmetry, no other gross focality Discharge Exam General: Alert, oriented. No acute distress HEENT: NC/AT CV: RRR Resp: Breath sounds decreased bilaterally, no increased effort of breathing Abdomen: Soft, nontender, nondistended Extremities: No edema in lower extremities bilaterally. Updated Medication List Medication Instructions Recorded Confirmed Type aspirin 81 mg tablet,delayed 81 mg PO HS 08/06/20 02/23/25 History release (Ecotrin Low Strength) nitroglycerin 0.4 mg sublingual 0.4 mg sublingual UD PRN Chest Pain 08/06/20 02/23/25 History tablet metoprolol succinate 50 mg 50 mg PO BID #180 tabs 02/02/23 02/23/25 Rx tablet,extended release 24 hr fluticasone 250 mcg-salmeterol 50 1 inh inhalation BID 05/18/23 02/23/25 History mcg/dose blistr powdr for inhalation (Wixela Inhub) cholecalciferol (vitamin D3) 25 25 mcg PO DAILY 05/04/24 02/23/25 History mcg (1,000 unit) capsule lisinopril 20 mg tablet 20 mg PO QAM #90 tabs 05/04/24 02/23/25 Rx atorvastatin 40 mg tablet 40 mg PO HS 02/18/25 02/23/25 History mecobalamin (vitamin B12) 1,000 1,000 mcg PO DAILY 02/18/25 02/23/25 History mcg chewable tablet apixaban 2.5 mg tablet (Eliquis) 2.5 mg PO BID #60 tabs 02/26/25 Rx Hospital Stay Data Consultations 02/23/25 22:17 Consult Cardiology Routine Procedures Performed Operation Date: 02/25/25 10:00 Actual Procedures p Cineradiography w/Routine Exam - Quincy Coburn MD p Cath, Left with Cors and Vent - Quincy Coburn MD Diagnostic Imagining Performed 02/23/25 22:45 CT angio chest PE protocol Stat 02/25/25 US renal/blad retro comp Routine 02/25/25 12:44 CL Cath Imgs for PACS use only Routine Chest CTA 02/23/25 22:45 Exam(s): CTA CHEST EXAM: CT Chest With Intravenous Contrast CLINICAL HISTORY: Reason for exam: cp. TECHNIQUE: Axial computed tomographic images of the chest with intravenous contrast. CTDI is 33.54 mGy and DLP is 618.61 mGy-cm. Automated exposure control was utilized for the study. A dose lowering technique was utilized adhering to the principles of ALARA. COMPARISON: No relevant prior studies available. FINDINGS: Pulmonary arteries: Unremarkable. No pulmonary embolism. 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 Moderate aortic calcifications. Lungs: Peribronchial thickening and septal thickening bilaterally. Mild basilar atelectasis or airspace disease. No mass. Pleural space: Small bilateral pleural effusions. No pneumothorax. Heart: Cardiomegaly. Marked coronary calcifications. No significant pericardial effusion. No evidence of RV dysfunction. Bones/joints: Degenerative changes of the shoulders, notably on the right. Degenerative changes of the spine. Old sternal fracture deformity. No dislocation. Soft tissues: Unremarkable. Lymph nodes: Unremarkable. No enlarged lymph nodes. Kidneys and ureters: Partially visualized 2.5 cm right renal lesion, not adequately characterized. IMPRESSION: 1. Cardiomegaly, small effusions, bilateral peribronchial thickening and septal thickening. May represent pulmonary edema. 2. 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 3. Partially visualized 2.5 cm right renal lesion, not adequately characterized. Correlate with priors or consider follow-up ultrasound/MR non-emergently. Electronically signed by: Minh Yanes M.D. 02/24/25 04:41 AM Renal Ultrasound 02/25/25 00:00 EXAM: US renal/blad retro comp CLINICAL HISTORY: f/u renal lesion on CT TECHNIQUE: Static ultrasound images with Grayscale and Doppler of kidneys and urinary bladder were submitted for review. COMPARISON: none FINDINGS: The right kidney is normal in size and echogenicity without evidence of hydronephrosis, nephrolithiasis . A small hypoechoic lesion measuring 1.5x1.3cm seen at upper interpolar cortex. Another iso to hypoechoic lesion measuring 4.2x3.9x3.8cm seen at mid pole with internal vascularity. Right renal vein is patent. The left kidney is normal in size and echogenicity without evidence of hydronephrosis, nephrolithiasis. A hypoechoic exophytic lesion measuring 2.7x2.7x2.3cm at lower pole and another hypoechoic area measuring 2.2x2x1.9cm at mid pole. Left renal vein not visualized. Multiple echogenic foci with twinkle color artifact, likely calculi. Urinary bladder shows multiple large calculi within lumen. Diverticulum along right lateral wall of urinary bladder. IMPRESSION: 1. Few hypoechoic lesions/masses seen in bilateral kidneys as described. Suggested Contrast CT abdomen/ MR abdomen for further evaluation. 2. Vesical calculi. Electronically signed by Geremias Espinal 02-25-2025 07:34 AM Pending Results Patient Have Any Pending Studies at Discharge: No Discharge Instructions Given to Patient (Per Discharging Provider) Mr. Varner, Mark were seen by the roller shop utility worker who recommended discharge home with the following recommendations: -Hold your lisinopril at home -We will discontinue Jardiance and resume at a later date as needed -Continue with the new blood thinner Eliquis -Your kidney function is slightly worsened, increase your oral fluid intake at home. We will repeat a BMP lab in 3 days and followup with you for continued monitoring. -Follow up with your primary care provider as scheduled within 1 week of discharge -Followup with your Tipple Mechanic Dr Coburn in 1-2 weeks You verbalized that you wanted NO FURTHER WORKUP of the renal lesions noted on imaging. Please follow up with your primary care provider should you change your mind. Again, please keep close follow up with your roller shop utility worker and primary care provider after discharge. Please do not hesitate to come back to the emergency room if your symptoms worsen or return. It was a pleasure taking care of you while you were here. Total Time Total Time Spent Total Time Spent (In Minutes): 60
[2025-02-26 15:05] VITALS: BP 112/73
[2025-02-26 15:32] VITALS: PULSE 74
[2025-02-26] MEDS ORDERED: APIXABAN 2.5 MG TAB PO SCH (21:00)
--- NOTE | 2025-02-26 23:04 | Cardiology Progress Note ---
Date of Service February 26, 2025 Assessment & Plan (1) NSTEMI (non-ST elevated myocardial infarction): Plan: 2. Multivessel CAD--widely patent LAD stent, stable mid RCA, distal circumflex disease 3. Ischemic cardiomyopathy--EF20-25%suspected stress-induced cardiomyopathy 4. Paroxysmal AF--new diagnosis, rate controlledconverted back to sinus rhythm 5. Hypertension 6. History of renal cancerrenal mass on CT scan 7. DyslipidemiaLDL 70, atorvastatin 40 8. SHEELA Feeling well, chest pain-free, breathing comfortably. Hemodynamically stable. No access site complications Brief episodes of sinus bradycardia with PVCs to the mid 30s. Asymptomatic on beta-letty Plan on optimizing GDMT for cardiomyopathy, anticoagulation for AF and continuing medical management of residual CAD. Continue Eliquis 2.5 mg twice daily Continue Toprol-XL Hold lisinopril in the setting of SHEELA. Repeat BMP later this week. Encouraged to increase p.o. fluid intake Hold Jardiance for now, retry as an outpatient Continue current statin Follow-up with me in 1 to 2 weeks. Repeat echo in 2 to 3 months. Admission and Anticipated Discharge Date Admission Date: February 23, 2025 Subjective Feeling well. Denies any chest pain. No other new concerns. Telemetry reviewedbrief episodes of bradycardia down to mid 30s, appears sinus with PVCs. Asymptomatic. Review of Systems Review of Systems: All systems reviewed & are unremarkable except as noted in HPI & below Physical Exam Physical Exam: General: Comfortable HEENT: Sclerae anicteric Lungs: Clear to auscultation bilaterally Cardiac: Regular with ectopy Vascular: Right radial artery access site tender with no ecchymosis, hematoma. Distal pulse and sensation intact. Abdomen: Soft, nontender Extremities: Well perfused, no peripheral edema Neuro: Nonfocal Psych: Alert orient x3, normal affect and mood Results & Data Vital Signs (Past 12 Hours) Vital Signs Temp Pulse Pulse Resp BP BP Pulse Ox 02/26/25 16:28 97.7 F 74 18 113/65 112/73 95 02/26/25 15:32 97.7 F 74 18 113/65 112/73 95 02/26/25 15:03 97.7 F 74 18 113/65 112/73 95 02/26/25 14:00 66 02/26/25 11:48 97.7 F 74 18 113/65 95 O2 Del Method 02/26/25 16:28 02/26/25 15:32 02/26/25 15:03 02/26/25 14:00 02/26/25 11:48 Room Air PG Care Time/CCT Total # of Minutes Spent Total Time Spent with Patient: Total time spent is greater than 50% in coordination of care (as documented) at patient's floor/unit and/or counseling patient: Coding Level of Care Code 90904 SUB INP/OBS CARE 2/35MIN Diagnoses NSTEMI (non-ST elevated myocardial infarction) I21.4
== END 2025-02-26 15:35 | disposition home or self-care (01) | DRG 281 ==
LOC: 2S 19:02